=== PATIENT | male | born 1970 ===

== ENCOUNTER 2016-11-20 06:55 | Inpatient (IN) | payer MEDICAID, MEDICARE, OTHER ==
[2016-11-20 07:16] VITALS: BMI 27.4
[2016-11-20] MEDS ORDERED: Sodium Chloride 0.9% 1,000 ML IV ONE (07:34)
[2016-11-20] MEDS ORDERED: Sodium Chloride 0.9% 1,000 ML ONE ×2 (07:44→11:31)
--- NOTE | 2016-11-20 07:52 | C.PDOC ---
History Of Present Illness Patient is a 46 y/o male, whose PMHx includes HTN, and diabetes, that presents to the ED for evaluation of abdominal pain, vomiting, and diarrhea for the last 3 days. Patient also states that he developed left sided chest pain yesterday and some cough. Pt denies any cardiac history but has AICD/Pacemaker scar to chest wall. Otherwise, denies any shortness of breath, extremity swelling. PMD: Dr. Allen Time Seen by Provider: 11/20/16 07:27 Chief Complaint (Nursing): Chest Pain History Per: Patient History/Exam Limitations: no limitations Onset/Duration Of Symptoms: Days (3) Current Symptoms Are (Timing): Still Present Quality: "Pain" Associated Symptoms: Nausea. denies: Dyspnea, Diaphoresis, Syncope Modifying Factors: None Exacerbating Factors: None Alleviating Factors: None Recent travel outside of the [place]: No Additional History Per: Patient Past Medical History Reviewed: Historical Data, Nursing Documentation, Vital Signs Vital Signs: Last Vital Signs Temp 98.4 F 11/20/16 11:45 Pulse 127 H 11/20/16 12:01 Resp 20 11/20/16 12:01 BP 122/83 11/20/16 12:01 Pulse Ox 96 11/20/16 12:35 - Medical History PMH: Cardia Arrhythmia, HTN, Hypercholesterolemia Denies: Chronic Kidney Disease Surgical History: Pacemaker - [facility] Procedures CORONAR ARTERIOGR-2 CATH (11/24/13) DRAINAGE OF ABDOMEN SKIN, EXTERNAL APPROACH (11/26/15) DRAINAGE OF PELVIC SUBCU/FASCIA, PERC APPROACH (10/24/15) LT HEART ANGIOCARDIOGRAM (11/24/13) RT/LEFT HEART CARD CATH (11/24/13) Family History: States: Unknown Family Hx - Social History Hx Tobacco Use: No Hx Alcohol Use: Yes Hx Substance Use: No - Immunization History Hx Tetanus Toxoid Vaccination: No Hx Influenza Vaccination: Yes Hx Pneumococcal Vaccination: No Review Of Systems Except As Marked, All Systems Reviewed And Found Negative. Constitutional: Negative for: Fever, Chills Cardiovascular: Positive for: Chest Pain. Negative for: Palpitations, Edema, Light Headedness Respiratory: Negative for: Cough, Shortness of Breath, Hemoptysis, Sputum Gastrointestinal: Positive for: Nausea, Vomiting, Abdominal Pain, Diarrhea Genitourinary: Negative for: Dysuria, Frequency, Incontinence, Hematuria Musculoskeletal: Negative for: Back Pain Skin: Negative for: Rash Neurological: Negative for: Weakness, Numbness, Headache, Dizziness Physical Exam - Physical Exam Appears: Well, Non-toxic, No Acute Distress Skin: Normal Color, Warm, Dry Head: Atraumatic, Normacephalic Eye(s): bilateral: Normal Inspection, EOMI Neck: Normal ROM, Supple Chest: Symmetrical, No Tenderness Cardiovascular: Rhythm Regular (tachycardic), No Murmur Respiratory: Normal Breath Sounds, No Accessory Muscle Use, No Rales, No Rhonchi , No Wheezing Gastrointestinal/Abdominal: Soft, Tenderness (LLQ), No Guarding, No Rebound Extremity: Normal ROM Neurological/Psych: Oriented x3, Normal Speech, Normal Cognition ED Course And Treatment - Laboratory Results Result Diagrams: 11/20/16 08:06 11/20/16 08:06 ECG: Interpreted By Me, Viewed By Me ECG Rhythm: Sinus Tachycardia ECG Interpretation: No Acute Changes Interpretation Of ECG: Non-specific ST wave changes. Rate From EC (bpm) O2 Sat by Pulse Oximetry: 96 (on RA) Pulse Ox Interpretation: Normal Medical Decision Making Medical Decision Making: Patient is febrile, and tachycardic upon arrival to ED. Blood work, urinalysis, CXR ordered and reviewed. Patient was given Tylenol, Zofran, Morphine, and IV fluids. 9:07AM Cxray shows R sided infiltrate. Patient febrile and tachycardic with elevated bands. Broad spectrum antibitoics started pending CT 9:18AM Code sepsis called. Patient has lactate 3 (resulted after 9am). Febrile and tachycardic on arrival with bandemia. Vanc/zosyn ordered when xray was read. 1L IVF already given. Additional 2.2L (30ml/kg minus 1L bolus already given) ordered when lactate resulted. 11:34AM CT abd/pelvis negative. Lactate improved to 1.7. K replaced. Spoke to Dr. Allen. Will admit to med/sx for pna. EKg shows sinus tachycardia at 141bpm with normal intervals and non-specific ST changes Disposition - Disposition Disposition: HOSPITALIZED Disposition Time: 14:04 Condition: FAIR - Clinical Impression Clinical Impression: Chest pain, Pneumonia - Scribe Statement The provider has reviewed the documentation as recorded by the Gayathri Alba All medical record entries made by the Scribe were at my direction and personally dictated by me. I have reviewed the chart and agree that the record accurately reflects my personal performance of the history, physical exam, medical decision making, and the department course for this patient. I have also personally directed, reviewed, and agree with the discharge instructions and disposition.
[2016-11-20] MEDS ORDERED: Morphine 4 MG/ML VIAL ONE (08:03)
[2016-11-20 08:16] LABS: BASO % 0.4 % (0.0-2.0); HEMOGLOBIN 17.1 g/dL (12.0-18.0); LYMPH # 0.4 K/uL (1.0-4.3); LYMPH % 5.7 % (20.0-40.0); MEAN CELL VOLUME 86.8 fL (80.0-94.0); MEAN CORPUSCULAR HEMOGLOBIN 29.7 pg (27.0-31.0); MEAN CORPUSCULAR HGB CONC 34.2 g/dL (33.0-37.0); MEAN PLATELET VOLUME 11.7 fL (7.2-11.7); MONO # 0.6 K/uL (0.0-0.8); MONO % 8.6 % (0.0-10.0); NEUT # 5.7 K/uL (1.8-7.0); NEUT % 85.3 % (50.0-75.0); RBC 5.74 Mil/uL (4.40-5.90); RED CELL DISTRIBUTION WIDTH 13.4 % (11.5-14.5); WHITE BLOOD COUNT 6.7 K/uL (4.8-10.8)
[2016-11-20 08:18] LABS: INR 1.1; PROTHROMBIN TIME 12.5 SECONDS (9.7-12.2)
[2016-11-20 08:20] LABS: ALBUMIN 4.3 g/dL (3.5-5.0)
[2016-11-20 08:23] LABS: ALB/GLOB RATIO 1.3 (1.0-2.1); ALT/SGPT 30 U/L (21-72); AST/SGOT 28 U/L (17-59); BLOOD UREA NITROGEN 15 mg/dL (9-20); GFR AFRICAN-AMERICAN > 60; GFR NON-AFRICAN AMERICAN > 60
[2016-11-20 08:24] LABS: CALCIUM 8.8 mg/dl (8.6-10.4)
[2016-11-20 08:25] LABS: LIPASE < 10 U/L (23-300); PLATELET COUNT 127 K/uL (130-400)
[2016-11-20 08:26] LABS: URINE BILIRUBIN NEGATIVE (NEGATIVE); URINE BLOOD NEGATIVE (NEGATIVE); URINE CLARITY Clear (Clear); URINE COLOR Yellow (YELLOW); URINE GLUCOSE (UA) 3+ mg/dL (Normal); URINE LEUKOCYTE ESTERASE NEG Leu/uL (Negative); URINE NITRATE NEGATIVE (NEGATIVE); URINE PROTEIN 1+ mg/dL (NEGATIVE); URINE UROBILINOGEN NORMAL mg/dL (0.2-1.0)
[2016-11-20 08:49] LABS: CK-MB 1.08 ng/mL (0.0-3.38)
--- NOTE | 2016-11-20 08:56 | RAD ---
HISTORY: chest pain COMPARISON: 12/17/2013 FINDINGS: LUNGS: Prominent increased consolidative markings at both lung bases ; right greater than left suggestive for infiltrate and or atelectasis. Associated small bilateral pleural effusions. PLEURA: As above. CARDIOVASCULAR: Cardiomegaly. Left-sided pacemaker. OSSEOUS STRUCTURES: No significant abnormalities. VISUALIZED UPPER ABDOMEN: Normal. OTHER FINDINGS: None. IMPRESSION: Prominent increased consolidative markings at both lung bases ; right greater than left suggestive for infiltrate and or atelectasis. Associated small bilateral pleural effusions.
[2016-11-20 09:01] LABS: BANDS 43 % (0-2); LYMPHOCYTE 11 % (20-40); MONOCYTE 6 % (0-10); NEUTROPHIL 40 % (50-75); TOTAL CELLS COUNTED 100
[2016-11-20 09:02] LABS: PLATELET ESTIMATE NORMAL (NORMAL)
[2016-11-20] MEDS ORDERED: Piperacillin/Tazobact 3.375 gm 100 ML IVPB STA (09:05)
[2016-11-20] MEDS ORDERED: Piperacillin/Tazobact 3.375 gm 100 ML IVPB ONE (09:09)
[2016-11-20 09:11] LABS: VENOUS BLOOD GAS BASE EXCESS -4.4 mmol/L (0.0-2.0); VENOUS BLOOD GAS PCO2 39 mmHg (40-60); VENOUS BLOOD GAS PO2 24 mm/Hg (30-55); VENOUS BLOOD PH 7.34 (7.32-7.43)
[2016-11-20] MEDS ORDERED: Iodixanol 320 MG/ML 100 ML BOTTLE IV ONE (09:50)
[2016-11-20 11:14] LABS: VENOUS BLOOD GAS PCO2 36 mmHg (40-60); VENOUS BLOOD GAS PO2 37 mm/Hg (30-55)
--- NOTE | 2016-11-20 11:23 | CT ---
PROCEDURE: CT Abdomen and Pelvis with contrast HISTORY: Left lower quadrant pain and vomiting. COMPARISON: None. TECHNIQUE: Contrast dose: 100 cc Visipaque 320 Radiation dose: Total exam DLP = 1147.00 mGy-cm. This CT exam was performed using one or more of the following dose reduction techniques: Automated exposure control, adjustment of the mA and/or kV according to patient size, and/or use of iterative reconstruction technique. FINDINGS: LOWER THORAX: Unremarkable. LIVER: Hepatic steatosis. No focal masses. No intrahepatic bile duct dilatation or perihepatic ascites. GALLBLADDER AND BILE DUCTS: Unremarkable. PANCREAS: Unremarkable. No gross lesion or ductal dilatation. SPLEEN: Unremarkable. ADRENALS: Unremarkable. No mass. KIDNEYS AND URETERS: Unremarkable. No hydronephrosis. No solid mass. VASCULATURE: Unremarkable. No aortic aneurysm. BOWEL: Diverticulosis without an acute inflammatory component or other associated pathologic process. APPENDIX: Normal appendix. PERITONEUM: Unremarkable. No free fluid. No free air. LYMPH NODES: Unremarkable. No enlarged lymph nodes. BLADDER: Unremarkable. REPRODUCTIVE: Unremarkable. BONES: No acute fracture. OTHER FINDINGS: None. IMPRESSION: No acute findings related to/accounting for the clinical presentation. Additional benign and/or incidental findings described above.
[2016-11-20] MEDS ORDERED: Sodium Chloride 0.9% 500 ML IV ONE (11:31)
[2016-11-20] MEDS ORDERED: Vancomycin 1 GM 1 GM/250 ML BAG IVPB ONE (11:31)
[2016-11-20] MEDS ORDERED: Potassium Chloride 20 mEq ER Tab PO STA (11:33)
[2016-11-20] MEDS ORDERED: Potassium Chloride 20 mEq ER Tab PO ONE (12:07)
[2016-11-20] MEDS: (Novolin R) Insulin Human Regular 100 units/ml vial SC SCH ×2 (16:35→22:08)
[2016-11-20] MEDS ORDERED: (Novolin R) Insulin Human Regular 100 units/ml vial ONE (16:42)
[2016-11-20] MEDS: Metoprolol Succinate 50 mg XL Tab PO SCH (19:57)
--- NOTE | 2016-11-20 20:23 | CP.PCM.HP ---
History of Present Illness - History of Present Illness History of Present Illness: COMPREHENSIVE HISTORY & PHYSICAL EXAM HPI for last few days patient has been complaining of epigastric alfonzo nauseous feeling and vomiting for the last 2 or 3 days patient has no chills, fevers, cough or expectoration. Patient presented to [facility] ER. Chest x-ray was done which showed bilateral infiltrate right more than left. Patient is admitted for aspiration pneumonia PAST HIST. history of hyptension and known ischemic cardiomyopathy and diabetes. [facility] for right groin abscess which is resolved. PERSONAL HIST: Smoking. N Alcohol. N Allergy N Travel_- . FAMILY HIST : ROS : Constitutional: Negative for weight change, chills, night sweats, fatigue and usage of assist device. Eyes: Negative for redness, swelling, itching, discharge, vision changes, blurry vision, double vision, glaucoma, cataracts, Ears: Negative for hearing loss, ringing, , tinnitus, vertigo Nose: Negative for rhinorrhea, stuffiness, sniffing, itching, postnasal drip, discoloration, nasal congestion and epistaxis. Throat: Negative for throat clearing, sore throat, hoarseness, difficulty swallowing and difficulty speaking. Respiratory: Negative for cough, chest tightness, sputum or phlegm, chronic cough, hemoptysis, wheezing, snoring at night, pleuritic chest pain and daytime somnolence. Cardiovascular: Negative for chest pain, palpitations, orthopnea, PND, Edema of legs, leg cramps, angina, claudication, , irregular heartbeat, Neurology: Negative for irritability, muscle weakness, numbness and tingling, seizures, tremors, migraines, slurred speech, syncope, memory loss, mood changes , recurrent headaches Gastrointestinal: Negative for difficulty swallowing, diarrhea, constipation, black stools, rectal bleeding, nausea, flatulence, reflux, poor appetite, changes in bowel habits, abdominal pain Genitourinary: Negative for frequent urination, hematuria, discharge, incontinence, urinary retention, frequent UTI, Psychiatric: Negative for depression, anxiety/panic, suicidal tendencies, Musculoskeletal: Negative for swollen joints, back pain, , neck pain, morning stiffness of joints, . Skin: Negative for rash, ulcers, itching, dry skin and pigmented lesions. P/E: Constitutional: Appears stated age and in no apparent distress. Head: Normocephalic. Ears: External ear canals patent without inflammation. Tympanic membranes intact with normal light reflex and landmark. Eyes: Pupils are central, bilaterally equal, symmetrical and reacts to light with normal movements and no icterus or pallor. Nose: External nares are patent. Mucosa is pink Mouth-Throat: Good general appearance and condition. No post-pharyngeal/oropharyngeal erythema and tonsillar hypertrophy. Good dental hygiene. Neck-Lymphatic: Neck is supple with normal ROM, no thyromegaly, lymph nodes or masses. JVD is normal with no carotid bruit. Lungs: Clear to percussion and auscultation with bilateral normal air entry. Cardiovascular: S1 and S2 are normal with no murmurs, gallops and rub. GI Exam: No hepatomegaly. Abdomen is soft and non-tender. No Organomegaly , masses or hernias are evident and bowel sounds are normal and active. Neurology: Higher function and all cranial nerves intact, with no gross motor or sensory deficit. Superficial and deep reflexes are normal with downwards planters. No cerebellar deficit with normal gait. Musculoskeletal: No tender spots with normal curvature of the spine with no swelling or restricted ROM of the small and large joints. Extremities: Homans sign absent. Intact pulses with no pitting edema, calf tenderness or skin color changes. Skin: No rash, eruptions or abnormal skin pigmentation LAB/RADIOLOGY: ASSESMENT : aspiration pneumonia. ID evaluation IV antibiotics. Hypertension and hypertensive heart disease, stable. Type 2 diabetes, stable Present on Admission - Present on Admission Any Indicators Present on Admission: No Past Patient History - Infectious Disease Hx of Infectious Diseases: None - Past Medical History & Family History Past Medical History?: Yes - Past Social History Smoking Status: Never Smoked - CARDIAC Hx Cardia Arrhythmia: Yes Hx Hypercholesterolemia: Yes Hx Hypertension: Yes Hx Pacemaker: Yes - PULMONARY Hx Respiratory Disorders: No - NEUROLOGICAL Hx Neurological Disorder: No - HEENT Hx HEENT Problems: No - RENAL Hx Chronic Kidney Disease: No - ENDOCRINE/METABOLIC Hx Endocrine Disorders: Yes Hx Diabetes Mellitus Type 2: Yes - HEMATOLOGICAL/ONCOLOGICAL Hx Blood Disorders: No - INTEGUMENTARY Hx Dermatological Problems: Yes Hx Cellulitis: Yes (right groin) - MUSCULOSKELETAL/RHEUMATOLOGICAL Hx Falls: No - GASTROINTESTINAL Hx Gastrointestinal Disorders: No - GENITOURINARY/GYNECOLOGICAL Hx Genitourinary Disorders: No - PSYCHIATRIC Hx Substance Use: No - SURGICAL HISTORY Hx Surgeries: Yes Other/Comment: pacemaker insertion 2 years ago - ANESTHESIA Hx Anesthesia: Yes Hx Anesthesia Reactions: No Hx Malignant Hyperthermia: No Has any member of the family had a problem w/ anesthesia?: No Meds Allergies/Adverse Reactions: Allergies Allergy/AdvReac Type Severity Reaction Status Date / Time No Known Allergies Allergy Verified 11/20/16 07:10 Results - Vital Signs Recent Vital Signs: Last Vital Signs Temp 99.3 F 11/20/16 18:27 Pulse 108 H 11/20/16 18:27 Resp 20 11/20/16 18:27 BP 133/88 11/20/16 18:27 Pulse Ox 97 11/20/16 18:27 - Labs Result Diagrams: 11/20/16 08:06 11/20/16 08:06 Labs: Laboratory Results - last 24 hr 11/20/16 16:34 POC Glucose (mg/dL) 299 H
--- NOTE | 2016-11-20 20:49 | CP.PCM.CON ---
History of Present Illness - History of Present Illness History of Present Illness: INFECTIOUS DISEASE CONSULT; HPI 46-year-old male with history off hypertension, ischemic cardiomyopathy, diabetes mellitus with recent history of right groin abscess which has resolved now comes in to the ER with history of abdominal pains mainly epigastric with nausea and vomiting and diarrhea with watery stools for the last 3 days. She states he is having 7-10 loose BMs and feels very dehydrated and weak. Patient also states he developed left-sided chest pain since yesterday and some cough. Denies any expectoration or hemoptysis. chest x-ray on admission showed bilateral infiltrates and prominent consolidations both lungs right sided more than the left. Also seen was left- sided pacemaker in place. Patient also underwent for CT of the abdomen and pelvis with IV contrast which showed no acute obstruction except for hepatic steatosis. Patient was started on IV Zosyn 3.375 one dose and vancomycin 1 g one dose after appropriate cultures. Infectious disease consultation requested by PMD for further evaluation. patient denies any sick contacts but states had dinner with meat products at his friend's home on Sunday. PMH: Cardia Arrhythmia, HTN, Hypercholesterolemia Denies: Chronic Kidney Disease Surgical History: Pacemaker - [facility] Procedures CORONAR ARTERIOGR-2 CATH (11/24/13) DRAINAGE OF ABDOMEN SKIN, EXTERNAL APPROACH (11/26/15) DRAINAGE OF PELVIC SUBCU/FASCIA, PERC APPROACH (10/24/15) LT HEART ANGIOCARDIOGRAM (11/24/13) RT/LEFT HEART CARD CATH (11/24/13) Family History: States: Unknown Family Hx - Social History Hx Tobacco Use: No Hx Alcohol Use: Yes Hx Substance Use: No - Immunization History Hx Tetanus Toxoid Vaccination: No Hx Influenza Vaccination: Yes Hx Pneumococcal Vaccination: No Review of Systems - Constitutional Constitutional: Lethargy. absent: Chills, Fever - EENT Eyes: absent: Blurred Vision, Floaters Nose/Mouth/Throat: Dry Mouth. absent: Odynophagia, Sore Throat - Cardiovascular Cardiovascular: Chest Pain, Dyspnea on Exertion. absent: Palpitations - Respiratory Respiratory: Cough. absent: Hemoptysis - Gastrointestinal Gastrointestinal: Abdominal Pain, Cramping, Diarrhea (7-10 bm /day), Nausea, Vomiting - Genitourinary Genitourinary: absent: Dysuria, Flank Pain - Musculoskeletal Musculoskeletal: absent: Arthralgias - Integumentary Integumentary: absent: Rash - Neurological Neurological: absent: Headaches - Hematologic/Lymphatic Hematologic: As Per HPI. absent: Lymphadenopathy Past Patient History - Infectious Disease Hx of Infectious Diseases: None - Past Medical History & Family History Past Medical History?: Yes - Past Social History Smoking Status: Never Smoked - CARDIAC Hx Cardia Arrhythmia: Yes Hx Hypercholesterolemia: Yes Hx Hypertension: Yes Hx Pacemaker: Yes - PULMONARY Hx Respiratory Disorders: No - NEUROLOGICAL Hx Neurological Disorder: No - HEENT Hx HEENT Problems: No - RENAL Hx Chronic Kidney Disease: No - ENDOCRINE/METABOLIC Hx Endocrine Disorders: Yes Hx Diabetes Mellitus Type 2: Yes - HEMATOLOGICAL/ONCOLOGICAL Hx Blood Disorders: No - INTEGUMENTARY Hx Dermatological Problems: Yes Hx Cellulitis: Yes (right groin) - MUSCULOSKELETAL/RHEUMATOLOGICAL Hx Falls: No - GASTROINTESTINAL Hx Gastrointestinal Disorders: No - GENITOURINARY/GYNECOLOGICAL Hx Genitourinary Disorders: No - PSYCHIATRIC Hx Substance Use: No - SURGICAL HISTORY Hx Surgeries: Yes Other/Comment: pacemaker insertion 2 years ago - ANESTHESIA Hx Anesthesia: Yes Hx Anesthesia Reactions: No Hx Malignant Hyperthermia: No Has any member of the family had a problem w/ anesthesia?: No Meds Allergies/Adverse Reactions: Allergies Allergy/AdvReac Type Severity Reaction Status Date / Time No Known Allergies Allergy Verified 11/20/16 07:10 - Medications Medications: Current Medications Carvedilol (Coreg) 6.25 mg PO BID [facility] Last Admin: 11/20/16 19:57 Dose: 6.25 mg Clonidine HCl (Catapres) 0.2 mg PO TID [facility] Last Admin: 11/20/16 15:13 Dose: 0.2 mg Enalapril Maleate (Vasotec) 20 mg PO BID [facility] Furosemide (Lasix) 40 mg PO DAILY [facility] Gabapentin (Neurontin) 300 mg PO TID [facility] Last Admin: 11/20/16 19:58 Dose: 300 mg Insulin Human Regular (Novolin R) 2 unit SC [facility] PRN Reason: Protocol Last Admin: 11/20/16 16:35 Dose: 2 unit Metformin HCl (Glucophage) 500 mg PO BIDCC [facility] Metoprolol Succinate (Toprol Xl) 50 mg PO BID [facility] Last Admin: 11/20/16 19:57 Dose: 50 mg Rosuvastatin Calcium (Crestor) 10 mg PO [facility] Physical Exam - Constitutional Appears: No Acute Distress - Head Exam Head Exam: NORMAL INSPECTION - Eye Exam Eye Exam: EOMI, PERRL. absent: Scleral icterus - ENT Exam ENT Exam: Mucous Membranes Dry, Normal Oropharynx - Neck Exam Neck exam: Positive for: Normal Inspection - Respiratory Exam Respiratory Exam: Decreased Breath Sounds (bases), NORMAL BREATHING PATTERN - Cardiovascular Exam Cardiovascular Exam: REGULAR RHYTHM, +S1, +S2 - GI/Abdominal Exam GI & Abdominal Exam: Normal Bowel Sounds, Soft, Tenderness (epigastric.) - Extremities Exam Extremities exam: Positive for: pedal pulses present. Negative for: calf tenderness, pedal edema - Neurological Exam Neurological exam: Alert, CN II-XII Intact, Oriented x3, Reflexes Normal - Psychiatric Exam Psychiatric exam: Normal Mood - Skin Skin Exam: Normal Color, Warm Results - Vital Signs Recent Vital Signs: Last Vital Signs Temp 99.3 F 11/20/16 18:27 Pulse 108 H 11/20/16 18:27 Resp 20 11/20/16 18:27 BP 133/88 11/20/16 18:27 Pulse Ox 97 11/20/16 18:27 - Labs Result Diagrams: 11/20/16 08:06 11/20/16 08:06 Labs: Laboratory Results - last 24 hr 11/20/16 16:34 POC Glucose (mg/dL) 299 H - Imaging and Cardiology Chest x-ray Status: Report reviewed by me (prominent consolidative markings both lungs R>L , infiltrate versus atelectasis. Left-sided pacemaker.) Assessment & Plan (1) Pneumonia Assessment and Plan: PATIENT HAS PNEUMONIA MOST LIKELY ASPIRATION. cANNOT RULE OUT ATYPICAL PNEUMONIA. CHECK URINARY LEGIONELLA ANTIGEN. PATIENT DENIES ANY EXPECTORATION, OR HEMOPTYSIS. hAS MILD DRY COUGH. ESR,CRP. MRSA SCREEN. PRO-CALCITONIN LEVELS. sTART iv CEFEPIME 1 G EVERY 8 HOURLY. 11/20/16. sTART iv zITHROMAX 250 MG EVERY 24 HOURLY X 5DAYS.11/20/16 Status: Acute (2) Gastroenteritis Assessment and Plan: DIARRHEA WORKUP ORDERED. IMODIUM 2 MG BY MOUTH TABLET NOW FOLLOWED BY 1 TABLET BY MOUTH WHEN NECESSARY EVERY 8 HOURLY FOR 2 DAYS. Status: Acute (3) Chest pain Assessment and Plan: PER pmd. Status: Acute (4) HTN (hypertension) Status: Chronic (5) Diabetes Status: Chronic (6) Cardiomyopathy Assessment and Plan: PATIENT HAS AN AICD /PERMANENT PACEMAKER LEFT CHEST WALL. PRO BNP Status: Acute
[2016-11-20] MEDS: Cefepime IV 1 gm in Dextrose 1 GM/50 ML BAG IVPB SCH (22:19)
[2016-11-20] MEDS: Azithromycin 250 MG in Sodium Chloride 0.9% 250 ML IVPB SCH (22:20)
[2016-11-21] MEDS: Cefepime IV 1 gm in Dextrose 1 GM/50 ML BAG IVPB SCH ×3 (04:54→22:21)
[2016-11-21 07:51] LABS: ALBUMIN 3.3 g/dL (3.5-5.0)
[2016-11-21 07:54] LABS: ALB/GLOB RATIO 1.1 (1.0-2.1); BILIRUBIN,DIRECT 0.3 mg/dL (0.0-0.4)
[2016-11-21] MEDS: (Novolin R) Insulin Human Regular 100 units/ml vial SC SCH ×5 (08:55→22:22)
[2016-11-21] MEDS: Metoprolol Succinate 50 mg XL Tab PO SCH ×2 (10:46→22:24)
--- NOTE | 2016-11-21 13:20 | CP.PCM.PN ---
Subjective - Date & Time of Evaluation Date of Evaluation: 11/21/16 Time of Evaluation: 13:17 - Subjective Subjective: CHIEF COMPLAINTS TODAY : PROFUSE WATERY DIARRHEA SPIKED TEMP 101 .1F ID ON BOARD ROS. HEENT : N. Resp : No cough, wheezing ,pleuritic CP ,or hemoptysis Cardio : No anginal CP, PND, orthopnea, palpitation GI : POS abd.pain, n/v ,diarrhea NO GI bleeding . REDYE HAND : No headache, vertigo, focal deficit. Musculoskel : No joint swelling , Derm : No rash Psych : Normal affect. Ext : No swelling ,calf pain PE. Pt. is alert awake in no distress. V.S As noted in the chart Head ,ear nose,throat and eyes : Normal. Neck : Supple with normal carotids. Lungs: Clear air entry. Heart : S1 & S2 normal with S4. No murmur. Abd : Soft tender with normal bowel sounds. Neuro : Moves all ext. with no localized deficit. Ext : No edema with intact pulses.Non tender calves Derm : No rashes or decubitus ulcer. LABS/RADIOLOGY: ASSESSMENT/PLAN : SEPSIS , ASPIRATION PNEUMONIA , INFECTIOUS DIARRHEA , COLITIS CARDIOMYOPATHY/HTN/DM/NORMAL CORONARIES Objective - Vital Signs/Intake and Output Vital Signs (last 24 hours): Temp Pulse Resp BP Pulse Ox 98.8 F 105 H 18 126/81 95 11/21/16 07:25 11/21/16 07:25 11/21/16 07:25 11/21/16 10:46 11/21/16 07:25 - Medications Medications: Current Medications Carvedilol (Coreg) 6.25 mg PO BID [facility] Last Admin: 11/21/16 10:46 Dose: 6.25 mg Clonidine HCl (Catapres) 0.2 mg PO TID [facility] Last Admin: 11/21/16 13:00 Dose: 0.2 mg Enalapril Maleate (Vasotec) 20 mg PO BID [facility] Last Admin: 11/21/16 10:45 Dose: 20 mg Furosemide (Lasix) 40 mg PO DAILY [facility] Last Admin: 11/21/16 10:46 Dose: 40 mg Gabapentin (Neurontin) 300 mg PO TID [facility] Last Admin: 11/21/16 13:00 Dose: 300 mg Cefepime HCl (Maxipime Iv 1 Gm Premix) 1 gm in 50 mls @ 100 mls/hr IVPB Q8H [facility] Last Admin: 11/21/16 12:57 Dose: 100 mls/hr Azithromycin 250 mg/ Sodium (Chloride) 250 mls @ 250 mls/hr IVPB Q24H [facility] Stop: 11/24/16 21:59 Last Admin: 11/20/16 22:20 Dose: 250 mls/hr Insulin Human Regular (Novolin R) 0 unit SC [facility] PRN Reason: Protocol Last Admin: 11/21/16 12:30 Dose: 4 unit Loperamide HCl (Imodium) 2 mg PO Q8H PRN PRN Reason: Diarrhea Stop: 11/23/16 20:00 Last Admin: 11/21/16 08:55 Dose: 2 mg Metformin HCl (Glucophage) 500 mg PO BIDCC [facility] Metoprolol Succinate (Toprol Xl) 50 mg PO BID [facility] Last Admin: 11/21/16 10:46 Dose: 50 mg Rosuvastatin Calcium (Crestor) 10 mg PO HS [facility] Last Admin: 11/20/16 22:25 Dose: 10 mg Tramadol HCl (Ultram) 50 mg PO Q8H PRN PRN Reason: Pain Last Admin: 11/20/16 23:06 Dose: 50 mg - Labs Labs: PT 12.5 SECONDS (9.7-12.2) H 11/20/16 08:06 INR 1.1 11/20/16 08:06 APTT 35 SECONDS (21-34) H 11/20/16 08:06
[2016-11-21] MEDS ORDERED: Lactobacillus Acidophilus 500 MU Cap PO SCH (18:56)
[2016-11-21] MEDS: Azithromycin 250 MG in Sodium Chloride 0.9% 250 ML IVPB SCH (22:25)
[2016-11-21] MEDS ORDERED: Amikacin Sulfate 1,000 MG in Sodium Chloride 0.9% 250 ML IVPB SCH (23:00)
[2016-11-21] MEDS ORDERED: Amikacin Sulfate 1,000 MG in Sodium Chloride 0.9% 250 ML IVPB STA (23:05)
--- NOTE | 2016-11-21 23:11 | CP.PCM.PN ---
Subjective - Date & Time of Evaluation Date of Evaluation: 11/21/16 Time of Evaluation: 23:10 - Subjective Subjective: CHIEF COMPLAINTS TODAY : spiked a temperature to 101.1 c/o watery bowel movements about 10 or more feels weak AT BEDSIDE. ROS. HEENT : N. Resp : No cough, wheezing ,pleuritic CP ,or hemoptysis Cardio : No anginal CP, PND, orthopnea, palpitation GI : POS abd.pain, n/v ,diarrhea NO GI bleeding . 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 Musculoskel : No joint swelling , Derm : No rash Psych : Normal affect. Ext : No swelling ,calf pain PE. Pt. is alert awake in no distress. V.S As noted in the chart Head ,ear nose,throat and eyes : Normal. Neck : Supple with normal carotids. Lungs: Clear air entry. Heart : S1 & S2 normal with S4. No murmur. Abd : Soft TENDER EPIGASTRIC, with normal bowel sounds. Neuro : Moves all ext. with no localized deficit. Ext : No edema with intact pulses.Non tender calves Derm : No rashes or decubitus ulcer. LABS/RADIOLOGY: blood [id number] RODS. K2.5 BANDEMIA 13%. ASSESSMENT SEPSIS ASPIRATION PNEUMONIA , INFECTIOUS DIARRHEA CARDIOMYOPATHY/ HTN/ DM CAD/AICD PLAN : IV AMIKACIN 1000MG X 1 DOSE.11/21/16 CONTINUE iv CEFEPIME 1 G EVERY 8 HOURLY. 11/20/16 ZITHROMAX 250 MG OD DAILY.11/20/16 POTASSIUM SUPPLEMENT PER PMD FOLLOW-UP DIARRHEA WORKUP. ENTERIC PRECAUTIONS. Objective - Vital Signs/Intake and Output Vital Signs (last 24 hours): Temp Pulse Resp BP Pulse Ox 97.3 F L 91 H 20 119/73 96 11/21/16 15:18 11/21/16 15:18 11/21/16 15:18 11/21/16 15:18 11/21/16 15:18 Intake and Output: 11/21/16 11/22/16 18:59 06:59 Intake Total 500 Balance 500 - Medications Medications: Current Medications Carvedilol (Coreg) 6.25 mg PO BID [facility] Last Admin: 11/21/16 18:00 Dose: Not Given Clonidine HCl (Catapres) 0.2 mg PO TID [facility] Last Admin: 11/21/16 18:00 Dose: Not Given Enalapril Maleate (Vasotec) 20 mg PO BID [facility] Last Admin: 11/21/16 18:00 Dose: Not Given Furosemide (Lasix) 40 mg PO DAILY [facility] Last Admin: 11/21/16 10:46 Dose: 40 mg Gabapentin (Neurontin) 300 mg PO TID [facility] Last Admin: 11/21/16 18:43 Dose: 300 mg Cefepime HCl (Maxipime Iv 1 Gm Premix) 1 gm in 50 mls @ 100 mls/hr IVPB Q8H [facility] Last Admin: 11/21/16 22:21 Dose: 100 mls/hr Azithromycin 250 mg/ Sodium (Chloride) 250 mls @ 250 mls/hr IVPB Q24H [facility] Stop: 11/24/16 21:59 Last Admin: 11/21/16 22:25 Dose: 250 mls/hr Amikacin Sulfate 1,000 mg/ (Sodium Chloride) 254 mls @ 250 mls/hr IVPB ONCE STA Stop: 11/22/16 00:05 Insulin Human Regular (Novolin R) 0 unit SC ACHS [facility] PRN Reason: Protocol Last Admin: 11/21/16 22:22 Dose: Not Given Lactobacillus Acidophilus (Bacid Acidophilus) 1 cap PO HS [facility] Last Admin: 11/21/16 22:19 Dose: 1 cap Loperamide HCl (Imodium) 2 mg PO Q8H PRN PRN Reason: Diarrhea Stop: 11/23/16 20:00 Last Admin: 11/21/16 20:12 Dose: 2 mg [facility] Metoprolol Succinate (Toprol Xl) 50 mg PO BID [facility] Last Admin: 11/21/16 22:24 Dose: 50 mg Rosuvastatin Calcium (Crestor) 10 mg PO HS [facility] Last Admin: 11/21/16 22:20 Dose: 10 mg Tramadol HCl (Ultram) 50 mg PO Q8H PRN PRN Reason: Pain Last Admin: 11/20/16 23:06 Dose: 50 mg - Labs Labs: PT 12.5 SECONDS (9.7-12.2) H 11/20/16 08:06 INR 1.1 11/20/16 08:06 APTT 35 SECONDS (21-34) H 11/20/16 08:06 Assessment and Plan (1) Pneumonia Status: Acute (2) Gastroenteritis Status: Acute (3) Chest pain Status: Acute (4) HTN (hypertension) Status: Chronic (5) Diabetes Status: Chronic (6) Cardiomyopathy Status: Acute
[2016-11-22] MEDS: Cefepime IV 1 gm in Dextrose 1 GM/50 ML BAG IVPB SCH ×3 (04:31→21:04)
[2016-11-22 07:33] LABS: BASO % 0.3 % (0.0-2.0); EOS % 0.1 % (0.0-4.0); LYMPH # 0.5 K/uL (1.0-4.3); LYMPH % 8.1 % (20.0-40.0); MEAN CORPUSCULAR HEMOGLOBIN 29.6 pg (27.0-31.0); MEAN CORPUSCULAR HGB CONC 34.9 g/dL (33.0-37.0); MEAN PLATELET VOLUME 10.6 fL (7.2-11.7); MONO # 0.9 K/uL (0.0-0.8); MONO % 13.6 % (0.0-10.0); NEUT # 5.2 K/uL (1.8-7.0); NEUT % 77.9 % (50.0-75.0); PLATELET COUNT 118 K/uL (130-400); RBC 4.92 Mil/uL (4.40-5.90); RED CELL DISTRIBUTION WIDTH 13.1 % (11.5-14.5); WHITE BLOOD COUNT 6.6 K/uL (4.8-10.8)
[2016-11-22 07:48] LABS: HEMOGLOBIN 14.5 g/dL (12.0-18.0); MEAN CELL VOLUME 84.7 fL (80.0-94.0)
[2016-11-22 08:12] LABS: ALBUMIN 3.3 g/dL (3.5-5.0)
[2016-11-22 08:15] LABS: ALB/GLOB RATIO 1.1 (1.0-2.1); ALT/SGPT 30 U/L (21-72); AST/SGOT 31 U/L (17-59); BLOOD UREA NITROGEN 13 mg/dL (9-20); GFR AFRICAN-AMERICAN > 60; GFR NON-AFRICAN AMERICAN > 60
[2016-11-22 08:16] LABS: CALCIUM 7.4 mg/dl (8.6-10.4)
--- NOTE | 2016-11-22 08:20 | RAD ---
HISTORY: pneumonia COMPARISON: No prior. FINDINGS: LUNGS: Mild venous congestion. Prominent linear atelectasis at the right lung base. Patchy bibasilar airspace opacities with small bilateral pleural effusions. PLEURA: As above. CARDIOVASCULAR: Cardiomegaly. Left-sided pacemaker. OSSEOUS STRUCTURES: No significant abnormalities. VISUALIZED UPPER ABDOMEN: Normal. OTHER FINDINGS: None. IMPRESSION: Mild venous congestion. Prominent linear atelectasis at the right lung base. Patchy bibasilar airspace opacities with small bilateral pleural effusions.
[2016-11-22] MEDS: (Novolin R) Insulin Human Regular 100 units/ml vial SC SCH ×4 (08:30→21:49)
[2016-11-22] MEDS: Metoprolol Succinate 50 mg XL Tab PO SCH ×2 (09:09→21:09)
[2016-11-22 09:24] LABS: BANDS 13 % (0-2); LYMPHOCYTE 6 % (20-40); MONOCYTE 10 % (0-10); NEUTROPHIL 71 % (50-75); TOTAL CELLS COUNTED 100
[2016-11-22 09:25] LABS: PLATELET ESTIMATE DECREASED (NORMAL)
[2016-11-22] MEDS ORDERED: Potassium Chloride 20 mEq ER Tab PO SCH (10:30)
[2016-11-22] MEDS ORDERED: Potassium Chloride 20 mEq ER Tab PO ONE (10:45)
--- NOTE | 2016-11-22 13:49 | CP.PCM.PN ---
Subjective - Date & Time of Evaluation Date of Evaluation: 11/22/16 Time of Evaluation: 13:46 - Subjective Subjective: CHIEF COMPLAINTS TODAY : DIARRHEA LESS BLD CULTURE POS , GM NEG RODS ROS. HEENT : N. Resp : No cough, wheezing ,pleuritic CP ,or hemoptysis Cardio : No anginal CP, PND, orthopnea, palpitation GI : POS abd.pain, n/v ,diarrhea NO GI bleeding . 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 Musculoskel : No joint swelling , Derm : No rash Psych : Normal affect. Ext : No swelling ,calf pain PE. Pt. is alert awake in no distress. V.S As noted in the chart Head ,ear nose,throat and eyes : Normal. Neck : Supple with normal carotids. Lungs: Clear air entry. Heart : S1 & S2 normal with S4. No murmur. Abd : Soft tender with normal bowel sounds. Neuro : Moves all ext. with no localized deficit. Ext : No edema with intact pulses.Non tender calves Derm : No rashes or decubitus ulcer. LABS/RADIOLOGY: ASSESSMENT/PLAN : IV AB Objective - Vital Signs/Intake and Output Vital Signs (last 24 hours): Temp Pulse Resp BP Pulse Ox 98.7 F 84 20 141/79 96 11/22/16 07:00 11/22/16 07:00 11/22/16 07:00 11/22/16 09:09 11/22/16 07:00 - Medications Medications: Current Medications Carvedilol (Coreg) 6.25 mg PO BID [facility] Last Admin: 11/22/16 09:09 Dose: 6.25 mg Clonidine HCl (Catapres) 0.2 mg PO TID [facility] Last Admin: 11/22/16 13:21 Dose: 0.2 mg Enalapril Maleate (Vasotec) 20 mg PO BID [facility] Last Admin: 11/22/16 09:09 Dose: 20 mg Furosemide (Lasix) 40 mg PO DAILY [facility] Last Admin: 11/22/16 09:09 Dose: 40 mg Gabapentin (Neurontin) 300 mg PO TID [facility] Last Admin: 11/22/16 13:21 Dose: 300 mg Cefepime HCl (Maxipime Iv 1 Gm Premix) 1 gm in 50 mls @ 100 mls/hr IVPB Q8H [facility] Last Admin: 11/22/16 12:19 Dose: 100 mls/hr Azithromycin 250 mg/ Sodium (Chloride) 250 mls @ 250 mls/hr IVPB Q24H [facility] Stop: 11/24/16 21:59 Last Admin: 11/21/16 22:25 Dose: 250 mls/hr Potassium Chloride (Potassium Chloride 10 Meq/100 Ml) 10 meq in 100 mls @ 100 mls/hr IVPB ONCE ONE Stop: 11/22/16 13:59 Last Admin: 11/22/16 12:19 Dose: 100 mls/hr Insulin Human Regular (Novolin R) 0 unit SC ACHS [facility] PRN Reason: Protocol Last Admin: 11/22/16 12:30 Dose: 6 unit Lactobacillus Acidophilus (Bacid Acidophilus) 1 cap PO HS [facility] Last Admin: 11/21/16 22:19 Dose: 1 cap Loperamide HCl (Imodium) 2 mg PO Q8H PRN PRN Reason: Diarrhea Stop: 11/23/16 20:00 Last Admin: 11/22/16 11:04 Dose: 2 mg Metformin HCl (Glucophage) 500 mg PO BIDCC [facility] Metoprolol Succinate (Toprol Xl) 50 mg PO BID [facility] Last Admin: 11/22/16 09:09 Dose: 50 mg Rosuvastatin Calcium (Crestor) 10 mg PO HS [facility] Last Admin: 11/21/16 22:20 Dose: 10 mg Tramadol HCl (Ultram) 50 mg PO Q8H PRN PRN Reason: Pain Last Admin: 11/20/16 23:06 Dose: 50 mg - Labs Labs: 11/22/16 07:03 11/22/16 07:03 PT 12.5 SECONDS (9.7-12.2) H 11/20/16 08:06 INR 1.1 11/20/16 08:06 APTT 35 SECONDS (21-34) H 11/20/16 08:06
[2016-11-22 18:02] LABS: SOURCE STOOL
[2016-11-22] MEDS: Lactobacillus Acidophilus 500 MU Cap PO SCH (18:02)
[2016-11-22 20:34] LABS: ALBUMIN 3.4 g/dL (3.5-5.0)
[2016-11-22 20:37] LABS: AST/SGOT 37 U/L (17-59); BLOOD UREA NITROGEN 13 mg/dL (9-20); CALCIUM 7.6 mg/dl (8.6-10.4); GFR AFRICAN-AMERICAN > 60; GFR NON-AFRICAN AMERICAN > 60
[2016-11-22 20:38] LABS: ALT/SGPT 34 U/L (21-72)
[2016-11-22 20:42] LABS: ALB/GLOB RATIO 1.1 (1.0-2.1)
[2016-11-22] MEDS: Azithromycin 250 MG in Sodium Chloride 0.9% 250 ML IVPB SCH (21:05)
--- NOTE | 2016-11-22 22:59 | CP.PCM.PN ---
Subjective - Date & Time of Evaluation Date of Evaluation: 11/22/16 Time of Evaluation: 22:59 - Subjective Subjective: CHIEF COMPLAINTS TODAY : spiked a temperature to 101.1 c/o STILL watery bowel movements. SOILED THE BED AT BEDSIDE. ROS. HEENT : N. Resp : No cough, wheezing ,pleuritic CP ,or hemoptysis Cardio : No anginal CP, PND, orthopnea, palpitation GI : POS abd.pain, n/v ,diarrhea NO GI bleeding . 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 Musculoskel : No joint swelling , Derm : No rash Psych : Normal affect. Ext : No swelling ,calf pain PE. Pt. is alert awake in no distress. V.S As noted in the chart Head ,ear nose,throat and eyes : Normal. Neck : Supple with normal carotids. Lungs: Clear air entry. Heart : S1 & S2 normal with S4. No murmur. Abd : Soft TENDER EPIGASTRIC, with normal bowel sounds. Neuro : Moves all ext. with no localized deficit. Ext : No edema with intact pulses.Non tender calves Derm : No rashes or decubitus ulcer. LABS/RADIOLOGY: blood [id number] RODS. K2.5 BANDEMIA 13%. ASSESSMENT SEPSIS -GRAM -VE SEPSIS -source not clear ? intra-abdominal abscess r/o endocarditis.. Patient had history of right groin abscess MRSA .( NOW HEALED ) ASPIRATION PNEUMONIA , INFECTIOUS DIARRHEA CARDIOMYOPATHY/ HTN/ DM CAD/AICD PLAN : 2D ECHO R/O VEGETATIONS C2,C4,CH50 RH FACTOR CERETAC SCAN ABDOMEN/PELVIS R/O SPLENIC VS INTRA-ABDOMINAL ABSCESS. IV AMIKACIN 1000MG X 1 DOSE.11/21/16 CONTINUE iv CEFEPIME 1 G EVERY 8 HOURLY. 11/20/16 ZITHROMAX 250 MG OD DAILY.11/20/16 POTASSIUM SUPPLEMENT PER PMD FOLLOW-UP DIARRHEA WORKUP. ENTERIC PRECAUTIONS. Objective - Vital Signs/Intake and Output Vital Signs (last 24 hours): Temp Pulse Resp BP Pulse Ox 98.5 F 77 18 123/81 97 11/22/16 15:52 11/22/16 17:30 11/22/16 15:52 11/22/16 15:52 11/22/16 15:52 Intake and Output: 11/22/16 11/23/16 18:59 06:59 Intake Total 300 Balance 300 - Medications Medications: Current Medications Carvedilol (Coreg) 6.25 mg PO BID [facility] Last Admin: 11/22/16 18:00 Dose: Not Given Clonidine HCl (Catapres) 0.2 mg PO TID [facility] Last Admin: 11/22/16 18:00 Dose: Not Given Enalapril Maleate (Vasotec) 20 mg PO BID [facility] Last Admin: 11/22/16 18:00 Dose: Not Given Furosemide (Lasix) 40 mg PO DAILY [facility] Last Admin: 11/22/16 09:09 Dose: 40 mg Gabapentin (Neurontin) 300 mg PO TID [facility] Last Admin: 11/22/16 18:02 Dose: 300 mg Cefepime HCl (Maxipime Iv 1 Gm Premix) 1 gm in 50 mls @ 100 mls/hr IVPB Q8H [facility] Last Admin: 11/22/16 21:04 Dose: 100 mls/hr Azithromycin 250 mg/ Sodium (Chloride) 250 mls @ 250 mls/hr IVPB Q24H [facility] Stop: 11/24/16 21:59 Last Admin: 11/22/16 21:05 Dose: 250 mls/hr Insulin Human Regular (Novolin R) 0 unit SC ACHS [facility] PRN Reason: Protocol Last Admin: 11/22/16 21:49 Dose: Not Given Lactobacillus Acidophilus (Bacid Acidophilus) 1 cap PO BID [facility] Last Admin: 11/22/16 18:02 Dose: 1 cap Loperamide HCl (Imodium) 2 mg PO Q6H [facility] Last Admin: 11/22/16 22:09 Dose: 2 mg Metformin HCl (Glucophage) 500 mg PO BIDCC [facility] Metoprolol Succinate (Toprol Xl) 50 mg PO BID [facility] Last Admin: 11/22/16 21:09 Dose: 50 mg Rosuvastatin Calcium (Crestor) 10 mg PO HS [facility] Last Admin: 11/22/16 21:09 Dose: 10 mg Tramadol HCl (Ultram) 50 mg PO Q8H PRN PRN Reason: Pain Last Admin: 11/20/16 23:06 Dose: 50 mg - Labs Labs: 11/22/16 07:03 11/22/16 20:16 PT 12.5 SECONDS (9.7-12.2) H 11/20/16 08:06 INR 1.1 11/20/16 08:06 APTT 35 SECONDS (21-34) H 11/20/16 08:06 Assessment and Plan (1) Pneumonia Status: Acute (2) Gastroenteritis Status: Acute (3) Chest pain Status: Acute (4) HTN (hypertension) Status: Chronic (5) Diabetes Status: Chronic (6) Cardiomyopathy Status: Acute
[2016-11-23] MEDS: Cefepime IV 1 gm in Dextrose 1 GM/50 ML BAG IVPB SCH ×3 (05:10→22:08)
[2016-11-23 08:10] LABS: BASO # 0.1 K/uL (0.0-0.2); BASO % 0.9 % (0.0-2.0); EOS % 0.5 % (0.0-4.0); HEMOGLOBIN 14.4 g/dL (12.0-18.0); LYMPH # 0.5 K/uL (1.0-4.3); LYMPH % 8.4 % (20.0-40.0); MEAN CORPUSCULAR HEMOGLOBIN 28.9 pg (27.0-31.0); MEAN PLATELET VOLUME 9.9 fL (7.2-11.7); MONO % 16.3 % (0.0-10.0); NEUT # 4.7 K/uL (1.8-7.0); NEUT % 73.9 % (50.0-75.0); PLATELET COUNT 124 K/uL (130-400); RBC 4.98 Mil/uL (4.40-5.90); RED CELL DISTRIBUTION WIDTH 13.2 % (11.5-14.5); WHITE BLOOD COUNT 6.4 K/uL (4.8-10.8)
[2016-11-23 08:16] LABS: ALBUMIN 3.1 g/dL (3.5-5.0)
[2016-11-23 08:18] LABS: GFR AFRICAN-AMERICAN > 60; GFR NON-AFRICAN AMERICAN > 60
[2016-11-23 08:19] LABS: ALT/SGPT 37 U/L (21-72); AST/SGOT 30 U/L (17-59); BLOOD UREA NITROGEN 12 mg/dL (9-20); CALCIUM 7.6 mg/dl (8.6-10.4)
[2016-11-23] MEDS: (Novolin R) Insulin Human Regular 100 units/ml vial SC SCH ×4 (08:25→22:08)
[2016-11-23 09:01] LABS: BANDS 4 % (0-2); LYMPHOCYTE 11 % (20-40); MONOCYTE 10 % (0-10); NEUTROPHIL 75 % (50-75); TOTAL CELLS COUNTED 100
[2016-11-23 09:02] LABS: PLATELET ESTIMATE SLIGHTLY DECREASED (NORMAL)
[2016-11-23] MEDS: Lactobacillus Acidophilus 500 MU Cap PO SCH ×2 (10:59→18:12)
[2016-11-23] MEDS: Metoprolol Succinate 50 mg XL Tab PO SCH ×2 (10:59→18:12)
--- NOTE | 2016-11-23 13:50 | CP.PCM.PN ---
Subjective - Date & Time of Evaluation Date of Evaluation: 11/23/16 Time of Evaluation: 13:50 - Subjective Subjective: CHIEF COMPLAINTS TODAY : DIARRHEA LESS BLD CULTURE POS , SALMONELLA GRP. C ROS. HEENT : N. Resp : No cough, wheezing ,pleuritic CP ,or hemoptysis Cardio : No anginal CP, PND, orthopnea, palpitation GI : POS abd.pain, n/v ,diarrhea NO GI bleeding . 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 Musculoskel : No joint swelling , Derm : No rash Psych : Normal affect. Ext : No swelling ,calf pain PE. Pt. is alert awake in no distress. V.S As noted in the chart Head ,ear nose,throat and eyes : Normal. Neck : Supple with normal carotids. Lungs: Clear air entry. Heart : S1 & S2 normal with S4. No murmur. Abd : Soft tender with normal bowel sounds. Neuro : Moves all ext. with no localized deficit. Ext : No edema with intact pulses.Non tender calves Derm : No rashes or decubitus ulcer. LABS/RADIOLOGY: K LOW , IV KCL ASSESSMENT/PLAN : IV AB Objective - Vital Signs/Intake and Output Vital Signs (last 24 hours): Temp Pulse Resp BP Pulse Ox 97.8 F 85 20 144/97 H 97 11/23/16 08:23 11/23/16 08:23 11/23/16 08:23 11/23/16 10:56 11/23/16 08:23 - Medications Medications: Current Medications Carvedilol (Coreg) 6.25 mg PO BID [facility] Last Admin: 11/23/16 10:59 Dose: 6.25 mg Clonidine HCl (Catapres) 0.2 mg PO TID [facility] Last Admin: 11/23/16 13:14 Dose: 0.2 mg Enalapril Maleate (Vasotec) 20 mg PO BID [facility] Last Admin: 11/23/16 10:55 Dose: 20 mg Furosemide (Lasix) 40 mg PO DAILY [facility] Last Admin: 11/23/16 10:56 Dose: 40 mg Gabapentin (Neurontin) 300 mg PO TID [facility] Last Admin: 11/23/16 13:14 Dose: 300 mg Cefepime HCl (Maxipime Iv 1 Gm Premix) 1 gm in 50 mls @ 100 mls/hr IVPB Q8H [facility] Last Admin: 11/23/16 13:14 Dose: 100 mls/hr Azithromycin 250 mg/ Sodium (Chloride) 250 mls @ 250 mls/hr IVPB Q24H [facility] Stop: 11/24/16 21:59 Last Admin: 11/22/16 21:05 Dose: 250 mls/hr Insulin Human Regular (Novolin R) 0 unit SC ACHS [facility] PRN Reason: Protocol Last Admin: 11/23/16 12:30 Dose: 8 unit Lactobacillus Acidophilus (Bacid Acidophilus) 1 cap PO BID [facility] Last Admin: 11/23/16 10:59 Dose: 1 cap Loperamide HCl (Imodium) 2 mg PO Q6H [facility] Last Admin: 11/23/16 11:19 Dose: 2 mg Metformin HCl (Glucophage) 500 mg PO BIDCC [facility] Metoprolol Succinate (Toprol Xl) 50 mg PO BID [facility] Last Admin: 11/23/16 10:59 Dose: 50 mg Potassium Chloride (K-Dur 20 Meq Er Tab) 20 meq PO DAILY [facility] Rosuvastatin Calcium (Crestor) 10 mg PO HS [facility] Last Admin: 11/22/16 21:09 Dose: 10 mg Tramadol HCl (Ultram) 50 mg PO Q8H PRN PRN Reason: Pain Last Admin: 11/20/16 23:06 Dose: 50 mg - Labs Labs: 11/23/16 07:28 11/23/16 07:28 PT 12.5 SECONDS (9.7-12.2) H 11/20/16 08:06 INR 1.1 11/20/16 08:06 APTT 35 SECONDS (21-34) H 11/20/16 08:06
--- NOTE | 2016-11-23 13:57 | CP.PCM.PN ---
Subjective - Date & Time of Evaluation Date of Evaluation: 11/23/16 Time of Evaluation: 13:57 - Subjective Subjective: CHIEF COMPLAINTS TODAY : afebrile c/o STILL watery bowel movements. 7-10/day SOILED THE BED/floor. blood culture reported positive for Salmonella-group C AT BEDSIDE. ROS. HEENT : N. Resp : No cough, wheezing ,pleuritic CP ,or hemoptysis Cardio : No anginal CP, PND, orthopnea, palpitation GI : POS abd.pain, n/v ,diarrhea NO GI bleeding . 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 Musculoskel : No joint swelling , Derm : No rash Psych : Normal affect. Ext : No swelling ,calf pain PE. Pt. is alert awake in no distress. V.S As noted in the chart Head ,ear nose,throat and eyes : Normal. Neck : Supple with normal carotids. Lungs: Clear air entry. Heart : S1 & S2 normal with S4. No murmur. Abd : Soft TENDER EPIGASTRIC, with normal bowel sounds. Neuro : Moves all ext. with no localized deficit. Ext : No edema with intact pulses.Non tender calves Derm : No rashes or decubitus ulcer. LABS/RADIOLOGY: blood cawbjcj-[id number] RODS. K2.5 BANDEMIA 13%. ASSESSMENT SEPSIS -Salmonella group C bacteremia source most likely spoiled food( meat ) r/o endocarditis..r/o occult abscess. Patient had history of right groin abscess MRSA .( NOW HEALED ) ASPIRATION PNEUMONIA , INFECTIOUS DIARRHEA CARDIOMYOPATHY/ HTN/ DM CAD/AICD PLAN : 2D ECHO R/O VEGETATIONS C2,C4,CH50 RH FACTOR CERETAC SCAN ABDOMEN/PELVIS R/O SPLENIC VS INTRA-ABDOMINAL ABSCESS. IV AMIKACIN 1000MG X 1 DOSE.11/21/16 CONTINUE iv CEFEPIME 1 G EVERY 8 HOURLY. 11/20/16 ZITHROMAX 250 MG OD DAILY.11/20/16 POTASSIUM SUPPLEMENT PER PMD FOLLOW-UP DIARRHEA WORKUP. ENTERIC PRECAUTIONS.case discussed with infection control MS JERONIMO AND STAFF..- Objective - Vital Signs/Intake and Output Vital Signs (last 24 hours): Temp Pulse Resp BP Pulse Ox 97.8 F 85 20 144/97 H 97 11/23/16 08:23 11/23/16 08:23 11/23/16 08:23 11/23/16 10:56 11/23/16 08:23 - Medications Medications: Current Medications Carvedilol (Coreg) 6.25 mg PO BID [facility] Last Admin: 11/23/16 10:59 Dose: 6.25 mg Clonidine HCl (Catapres) 0.2 mg PO TID [facility] Last Admin: 11/23/16 13:14 Dose: 0.2 mg Enalapril Maleate (Vasotec) 20 mg PO BID [facility] Last Admin: 11/23/16 10:55 Dose: 20 mg Furosemide (Lasix) 40 mg PO DAILY [facility] Last Admin: 11/23/16 10:56 Dose: 40 mg Gabapentin (Neurontin) 300 mg PO TID [facility] Last Admin: 11/23/16 13:14 Dose: 300 mg Cefepime HCl (Maxipime Iv 1 Gm Premix) 1 gm in 50 mls @ 100 mls/hr IVPB Q8H [facility] Last Admin: 11/23/16 13:14 Dose: 100 mls/hr Azithromycin 250 mg/ Sodium (Chloride) 250 mls @ 250 mls/hr IVPB Q24H [facility] Stop: 11/24/16 21:59 Last Admin: 11/22/16 21:05 Dose: 250 mls/hr Potassium Chloride (Potassium Chloride 20 Meq/100 Ml) 20 meq in 100 mls @ 50 mls/hr IVPB Q12 [facility] Insulin Human Regular (Novolin R) 0 unit SC ACHS [facility] PRN Reason: Protocol Last Admin: 11/23/16 12:30 Dose: 8 unit Lactobacillus Acidophilus (Bacid Acidophilus) 1 cap PO BID [facility] Last Admin: 11/23/16 10:59 Dose: 1 cap Loperamide HCl (Imodium) 2 mg PO Q6H [facility] Last Admin: 11/23/16 11:19 Dose: 2 mg Metformin HCl (Glucophage) 500 mg PO BIDCC [facility] Metoprolol Succinate (Toprol Xl) 50 mg PO BID [facility] Last Admin: 11/23/16 10:59 Dose: 50 mg Potassium Chloride (K-Dur 20 Meq Er Tab) 20 meq PO DAILY [facility] Rosuvastatin Calcium (Crestor) 10 mg PO HS [facility] Last Admin: 11/22/16 21:09 Dose: 10 mg Tramadol HCl (Ultram) 50 mg PO Q8H PRN PRN Reason: Pain Last Admin: 11/20/16 23:06 Dose: 50 mg - Labs Labs: 11/23/16 07:28 11/23/16 07:28 PT 12.5 SECONDS (9.7-12.2) H 11/20/16 08:06 INR 1.1 11/20/16 08:06 APTT 35 SECONDS (21-34) H 11/20/16 08:06 Assessment and Plan (1) Pneumonia Status: Acute (2) Gastroenteritis Status: Acute (3) Chest pain Status: Acute (4) HTN (hypertension) Status: Chronic (5) Diabetes Status: Chronic (6) Cardiomyopathy Status: Acute
[2016-11-23] MEDS: Azithromycin 250 MG in Sodium Chloride 0.9% 250 ML IVPB SCH (22:15)
[2016-11-24] MEDS: Cefepime IV 1 gm in Dextrose 1 GM/50 ML BAG IVPB SCH ×3 (05:21→21:37)
[2016-11-24] MEDS: (Novolin R) Insulin Human Regular 100 units/ml vial SC SCH ×4 (08:31→21:33)
[2016-11-24] MEDS: Potassium Chloride 20 mEq ER Tab PO SCH (10:59)
[2016-11-24] MEDS: Metoprolol Succinate 50 mg XL Tab PO SCH ×2 (10:59→21:35)
[2016-11-24] MEDS: Lactobacillus Acidophilus 500 MU Cap PO SCH ×2 (10:59→17:11)
--- NOTE | 2016-11-24 12:15 | NM ---
PROCEDURE: Ceretec labeled white blood cell study HISTORY: rule out intra-abdominal abscess/ splenic abscess. COMPARISON: 11/20/2016 CT abdomen and pelvis. 11/22/2016 chest radiograph TECHNIQUE: 18.5 mCi technetium 99 M Ceretec labeled white blood cells administered intravenously. Imaging at 2 and 20 hours per institutional protocol. FINDINGS: Expected uptake in the liver and spleen as well as alimentary tract. Mild increased uptake which is diffuse throughout the lungs consistent with inflammatory/infectious etiology without focal abnormality. IMPRESSION: No focal abnormalities thorax abdomen retroperitoneum or pelvis. Expected uptake in the reticuloendothelial system. Very mild increased uptake in the lungs consistent with inflammatory/ infectious etiologies. No focal abnormalities within the thorax.
--- NOTE | 2016-11-24 13:37 | CP.PCM.PN ---
Subjective - Date & Time of Evaluation Date of Evaluation: 11/24/16 Time of Evaluation: 13:40 - Subjective Subjective: CHIEF COMPLAINTS TODAY : DIARRHEA LESS BLD CULTURE POS , SALMONELLA GRP. C ROS. HEENT : N. Resp : No cough, wheezing ,pleuritic CP ,or hemoptysis Cardio : No anginal CP, PND, orthopnea, palpitation GI : POS abd.pain, n/v ,diarrhea NO GI bleeding . SENIOR PLANNING MANAGER : No headache, vertigo, focal deficit. Musculoskel : No joint swelling , Derm : No rash Psych : Normal affect. Ext : No swelling ,calf pain PE. Pt. is alert awake in no distress. V.S As noted in the chart Head ,ear nose,throat and eyes : Normal. Neck : Supple with normal carotids. Lungs: Clear air entry. Heart : S1 & S2 normal with S4. No murmur. Abd : Soft tender with normal bowel sounds. Neuro : Moves all ext. with no localized deficit. Ext : No edema with intact pulses.Non tender calves Derm : No rashes or decubitus ulcer. LABS/RADIOLOGY: K LOW , IV KCL ASSESSMENT/PLAN : IV AB Objective - Vital Signs/Intake and Output Vital Signs (last 24 hours): Temp Pulse Resp BP Pulse Ox 98.6 F 77 20 146/91 H 97 11/24/16 07:51 11/24/16 07:51 11/24/16 07:51 11/24/16 11:00 11/24/16 07:51 - Medications Medications: Current Medications Carvedilol (Coreg) 6.25 mg PO BID [facility] Last Admin: 11/24/16 10:59 Dose: 6.25 mg Clonidine HCl (Catapres) 0.2 mg PO TID [facility] Last Admin: 11/24/16 10:59 Dose: 0.2 mg Enalapril Maleate (Vasotec) 20 mg PO BID [facility] Last Admin: 11/24/16 11:00 Dose: 20 mg Furosemide (Lasix) 40 mg PO DAILY [facility] Last Admin: 11/24/16 10:59 Dose: 40 mg Gabapentin (Neurontin) 300 mg PO TID [facility] Last Admin: 11/24/16 10:59 Dose: 300 mg Cefepime HCl (Maxipime Iv 1 Gm Premix) 1 gm in 50 mls @ 100 mls/hr IVPB Q8H [facility] Last Admin: 11/24/16 12:06 Dose: 100 mls/hr Azithromycin 250 mg/ Sodium (Chloride) 250 mls @ 250 mls/hr IVPB Q24H [facility] Stop: 11/24/16 21:59 Last Admin: 11/23/16 22:15 Dose: 250 mls/hr Insulin Human Regular (Novolin R) 0 unit SC ACHS [facility] PRN Reason: Protocol Last Admin: 11/24/16 12:06 Dose: 6 unit Lactobacillus Acidophilus (Bacid Acidophilus) 1 cap PO BID [facility] Last Admin: 11/24/16 10:59 Dose: 1 cap Loperamide HCl (Imodium) 2 mg PO Q6H [facility] Last Admin: 11/24/16 10:59 Dose: 2 mg Metformin HCl (Glucophage) 500 mg PO BIDCC [facility] Metoprolol Succinate (Toprol Xl) 50 mg PO BID [facility] Last Admin: 11/24/16 10:59 Dose: 50 mg Potassium Chloride (K-Dur 20 Meq Er Tab) 20 meq PO DAILY [facility] Last Admin: 11/24/16 10:59 Dose: 20 meq Rosuvastatin Calcium (Crestor) 10 mg PO HS [facility] Last Admin: 11/23/16 22:08 Dose: 10 mg Tramadol HCl (Ultram) 50 mg PO Q8H PRN PRN Reason: Pain Last Admin: 11/20/16 23:06 Dose: 50 mg - Labs Labs: 11/23/16 07:28 11/23/16 07:28 PT 12.5 SECONDS (9.7-12.2) H 11/20/16 08:06 INR 1.1 11/20/16 08:06 APTT 35 SECONDS (21-34) H 11/20/16 08:06
--- NOTE | 2016-11-24 13:41 | CP.PCM.PN ---
Subjective - Date & Time of Evaluation Date of Evaluation: 11/24/16 Time of Evaluation: 13:41 - Subjective Subjective: CHIEF COMPLAINTS TODAY : afebrile DIARRHEA LESS blood culture reported positive for Salmonella-group C ROS. HEENT : N. Resp : No cough, wheezing ,pleuritic CP ,or hemoptysis Cardio : No anginal CP, PND, orthopnea, palpitation GI : POS abd.pain, n/v ,diarrhea NO GI bleeding . 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 Musculoskel : No joint swelling , Derm : No rash Psych : Normal affect. Ext : No swelling ,calf pain PE. Pt. is alert awake in no distress. V.S As noted in the chart Head ,ear nose,throat and eyes : Normal. Neck : Supple with normal carotids. Lungs: Clear air entry. Heart : S1 & S2 normal with S4. No murmur. Abd : Soft TENDER EPIGASTRIC, with normal bowel sounds. Neuro : Moves all ext. with no localized deficit. Ext : No edema with intact pulses.Non tender calves Derm : No rashes or decubitus ulcer. LABS/RADIOLOGY: blood culture-[facility] C STOOL CULTURE.- NOT SENT-?CANCELLED ?/ CERETAC SCAN WHOLE-BODY -VE except for very mild uptake lungs questionable inflammatory versus infectious etiology. chest x-ray 11/22/16-patchy bibasilar airspace opacities with small bilateral pleural effusions. ASSESSMENT SEPSIS -Salmonella group C bacteremia source most likely spoiled food( meat ) r/o endocarditis.. Patient had history of right groin abscess MRSA .( NOW HEALED ) ASPIRATION PNEUMONIA , INFECTIOUS DIARRHEA CARDIOMYOPATHY/ HTN/ DM CAD/AICD PLAN : 2D ECHO R/O VEGETATIONS C2,C4,CH50-P RH FACTOR-P IV AMIKACIN 1000MG X 1 DOSE.11/21/16 CONTINUE iv CEFEPIME 1 G EVERY 8 HOURLY. 11/20/16 ZITHROMAX 250 MG OD DAILY.11/20/16 POTASSIUM SUPPLEMENT PER PMD STOOL FOR CULTURE ORDERED.. ENTERIC PRECAUTIONS.case discussed with infection control MS JERONIMO AND STAFF..- Objective - Vital Signs/Intake and Output Vital Signs (last 24 hours): Temp Pulse Resp BP Pulse Ox 98.6 F 77 20 146/91 H 97 11/24/16 07:51 11/24/16 07:51 11/24/16 07:51 11/24/16 11:00 11/24/16 07:51 - Medications Medications: Current Medications Carvedilol (Coreg) 6.25 mg PO BID [facility] Last Admin: 11/24/16 10:59 Dose: 6.25 mg Clonidine HCl (Catapres) 0.2 mg PO TID [facility] Last Admin: 11/24/16 10:59 Dose: 0.2 mg Enalapril Maleate (Vasotec) 20 mg PO BID [facility] Last Admin: 11/24/16 11:00 Dose: 20 mg Furosemide (Lasix) 40 mg PO DAILY [facility] Last Admin: 11/24/16 10:59 Dose: 40 mg Gabapentin (Neurontin) 300 mg PO TID [facility] Last Admin: 11/24/16 10:59 Dose: 300 mg Cefepime HCl (Maxipime Iv 1 Gm Premix) 1 gm in 50 mls @ 100 mls/hr IVPB Q8H [facility] Last Admin: 11/24/16 12:06 Dose: 100 mls/hr Azithromycin 250 mg/ Sodium (Chloride) 250 mls @ 250 mls/hr IVPB Q24H [facility] Stop: 11/24/16 21:59 Last Admin: 11/23/16 22:15 Dose: 250 mls/hr Insulin Human Regular (Novolin R) 0 unit SC ACHS [facility] PRN Reason: Protocol Last Admin: 11/24/16 12:06 Dose: 6 unit Lactobacillus Acidophilus (Bacid Acidophilus) 1 cap PO BID [facility] Last Admin: 11/24/16 10:59 Dose: 1 cap Loperamide HCl (Imodium) 2 mg PO Q6H [facility] Last Admin: 11/24/16 10:59 Dose: 2 mg Met[facility] ([facility]) [facility] Metoprolol Succinate (Toprol Xl) 50 mg PO BID [facility] Last Admin: 11/24/16 10:59 Dose: 50 mg Potassium Chloride (K-Dur 20 Meq Er Tab) 20 meq PO DAILY [facility] Last Admin: 11/24/16 10:59 Dose: 20 meq Rosuvastatin Calcium (Crestor) 10 mg PO HS [facility] Last Admin: 11/23/16 22:08 Dose: 10 mg Tramadol HCl (Ultram) 50 mg PO Q8H PRN PRN Reason: Pain Last Admin: 11/20/16 23:06 Dose: 50 mg - Labs Labs: 11/23/16 07:28 11/23/16 07:28 PT 12.5 SECONDS (9.7-12.2) H 11/20/16 08:06 INR 1.1 11/20/16 08:06 APTT 35 SECONDS (21-34) H 11/20/16 08:06 Assessment and Plan (1) Salmonella bacteremia Status: Acute (2) Pneumonia Status: Acute (3) Gastroenteritis Assessment & Plan: probably salmonellosis Will send stools for culture for salmonella. Strict enteric precautions. Status: Acute (4) Chest pain Status: Acute (5) HTN (hypertension) Status: Chronic (6) Diabetes Status: Chronic (7) Cardiomyopathy Status: Acute
[2016-11-24] MEDS: Azithromycin 250 MG in Sodium Chloride 0.9% 250 ML IVPB SCH (21:35)
[2016-11-25] MEDS: Cefepime IV 1 gm in Dextrose 1 GM/50 ML BAG IVPB SCH ×3 (05:20→21:24)
[2016-11-25] MEDS: (Novolin R) Insulin Human Regular 100 units/ml vial SC SCH ×4 (08:55→21:34)
[2016-11-25] MEDS: Lactobacillus Acidophilus 500 MU Cap PO SCH ×2 (09:09→18:32)
[2016-11-25] MEDS: Potassium Chloride 20 mEq ER Tab PO SCH (09:09)
[2016-11-25] MEDS: Metoprolol Succinate 50 mg XL Tab PO SCH ×2 (09:13→18:33)
--- NOTE | 2016-11-25 13:53 | CP.PCM.PN ---
Subjective - Date & Time of Evaluation Date of Evaluation: 11/25/16 Time of Evaluation: 13:53 - Subjective Subjective: CHIEF COMPLAINTS TODAY : DIARRHEA LESS BLD CULTURE POS , SALMONELLA GRP. C ROS. HEENT : N. Resp : No cough, wheezing ,pleuritic CP ,or hemoptysis Cardio : No anginal CP, PND, orthopnea, palpitation GI : POS abd.pain, n/v ,diarrhea NO GI bleeding . 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 Musculoskel : No joint swelling , Derm : No rash Psych : Normal affect. Ext : No swelling ,calf pain PE. Pt. is alert awake in no distress. V.S As noted in the chart Head ,ear nose,throat and eyes : Normal. Neck : Supple with normal carotids. Lungs: Clear air entry. Heart : S1 & S2 normal with S4. No murmur. Abd : Soft tender with normal bowel sounds. Neuro : Moves all ext. with no localized deficit. Ext : No edema with intact pulses.Non tender calves Derm : No rashes or decubitus ulcer. LABS/RADIOLOGY: K LOW , IV KCL ASSESSMENT/PLAN : IV AB Objective - Vital Signs/Intake and Output Vital Signs (last 24 hours): Temp Pulse Resp BP Pulse Ox 97.4 F L 90 18 154/99 H 99 11/25/16 07:15 11/25/16 07:30 11/25/16 07:15 11/25/16 09:12 11/25/16 07:15 Intake and Output: 11/25/16 11/25/16 11:59 23:59 Intake Total 170 Balance 170 - Medications Medications: Current Medications Carvedilol (Coreg) 6.25 mg PO BID [facility] Last Admin: 11/25/16 09:13 Dose: 6.25 mg Clonidine HCl (Catapres) 0.2 mg PO TID [facility] Last Admin: 11/25/16 13:30 Dose: 0.2 mg Enalapril Maleate (Vasotec) 20 mg PO BID [facility] Last Admin: 11/25/16 09:11 Dose: 20 mg Furosemide (Lasix) 40 mg PO DAILY [facility] Last Admin: 11/25/16 09:12 Dose: 40 mg Gabapentin (Neurontin) 300 mg PO TID [facility] Last Admin: 11/25/16 13:52 Dose: 300 mg Cefepime HCl (Maxipime Iv 1 Gm Premix) 1 gm in 50 mls @ 100 mls/hr IVPB Q8H [facility] Last Admin: 11/25/16 13:30 Dose: 100 mls/hr Insulin Human Regular (Novolin R) 0 unit SC ACHS [facility] PRN Reason: Protocol Last Admin: 11/25/16 12:59 Dose: 6 unit Lactobacillus Acidophilus (Bacid Acidophilus) 1 cap PO BID [facility] Last Admin: 11/25/16 09:09 Dose: 1 cap Loperamide HCl (Imodium) 2 mg PO Q6H [facility] Last Admin: 11/25/16 12:53 Dose: 2 mg Metformin HCl (Glucophage) 500 mg PO BIDCC [facility] Metoprolol Succinate (Toprol Xl) 50 mg PO BID [facility] Last Admin: 11/25/16 09:13 Dose: 50 mg Potassium Chloride (K-Dur 20 Meq Er Tab) 20 meq PO DAILY [facility] Last Admin: 11/25/16 09:09 Dose: 20 meq Rosuvastatin Calcium (Crestor) 10 mg PO HS [facility] Last Admin: 11/24/16 21:38 Dose: 10 mg Tramadol HCl (Ultram) 50 mg PO Q8H PRN PRN Reason: Pain Last Admin: 11/20/16 23:06 Dose: 50 mg - Labs Labs: 11/23/16 07:28 11/23/16 07:28 PT 12.5 SECONDS (9.7-12.2) H 11/20/16 08:06 INR 1.1 11/20/16 08:06 APTT 35 SECONDS (21-34) H 11/20/16 08:06
--- NOTE | 2016-11-25 14:03 | CP.PCM.PN ---
Subjective - Date & Time of Evaluation Date of Evaluation: 11/25/16 Time of Evaluation: 14:03 - Subjective Subjective: CHIEF COMPLAINTS TODAY : afebrile DIARRHEA LESS blood culture reported positive for Salmonella-group C ROS. HEENT : N. Resp : No cough, wheezing ,pleuritic CP ,or hemoptysis Cardio : No anginal CP, PND, orthopnea, palpitation GI : POS abd.pain, n/v ,diarrhea NO GI bleeding . 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 Musculoskel : No joint swelling , Derm : No rash Psych : Normal affect. Ext : No swelling ,calf pain PE. Pt. is alert awake in no distress. V.S As noted in the chart Head ,ear nose,throat and eyes : Normal. Neck : Supple with normal carotids. Lungs: Clear air entry. Heart : S1 & S2 normal with S4. No murmur. Abd : Soft TENDER EPIGASTRIC, with normal bowel sounds. Neuro : Moves all ext. with no localized deficit. Ext : No edema with intact pulses.Non tender calves Derm : No rashes or decubitus ulcer. LABS/RADIOLOGY: blood culture-[facility] C s - ampicillin, Cipro, TMP-SMX. STOOL CULTURE.- NOT SENT-?CANCELLED ?/ CERETAC SCAN WHOLE-BODY -VE except for very mild uptake lungs questionable inflammatory versus infectious etiology. chest x-ray 11/22/16-patchy bibasilar airspace opacities with small bilateral pleural effusions. ASSESSMENT SEPSIS -Salmonella group C bacteremia source most likely spoiled food( meat ) r/o endocarditis.. Patient had history of right groin abscess MRSA .( NOW HEALED ) ASPIRATION PNEUMONIA , INFECTIOUS DIARRHEA CARDIOMYOPATHY/ HTN/ DM CAD/AICD PLAN : REPEAT BLOOD CULTURE TO SEE IF BACTEREMIA CLEARED.. CONTINUE iv CEFEPIME 1 G EVERY 8 HOURLY. 11/20/16 f/u 2D ECHO ZITHROMAX 250 MG OD DAILY.11/20/16 F/U CXR . POTASSIUM SUPPLEMENT PER PMD STOOL FOR CULTURE ORDERED.. ENTERIC PRECAUTIONS.case discussed WITH STAFF..- Objective - Vital Signs/Intake and Output Vital Signs (last 24 hours): Temp Pulse Resp BP Pulse Ox 97.4 F L 90 18 154/99 H 99 11/25/16 07:15 11/25/16 07:30 11/25/16 07:15 11/25/16 09:12 11/25/16 07:15 Intake and Output: 11/25/16 11/25/16 06:59 18:59 Intake Total 170 Balance 170 - Medications Medications: Current Medications Carvedilol (Coreg) 6.25 mg PO BID [facility] Last Admin: 11/25/16 09:13 Dose: 6.25 mg Clonidine HCl (Catapres) 0.2 mg PO TID [facility] Last Admin: 11/25/16 13:30 Dose: 0.2 mg Enalapril Maleate (Vasotec) 20 mg PO BID [facility] Last Admin: 11/25/16 09:11 Dose: 20 mg Furosemide (Lasix) 40 mg PO DAILY [facility] Last Admin: 11/25/16 09:12 Dose: 40 mg Gabapentin (Neurontin) 300 mg PO TID [facility] Last Admin: 11/25/16 13:52 Dose: 300 mg Cefepime HCl (Maxipime Iv 1 Gm Premix) 1 gm in 50 mls @ 100 mls/hr IVPB Q8H [facility] Last Admin: 11/25/16 13:30 Dose: 100 mls/hr Insulin Human Regular (Novolin R) 0 unit SC ACHS [facility] PRN Reason: Protocol Last Admin: 11/25/16 12:59 Dose: 6 unit Lactobacillus Acidophilus (Bacid Acidophilus) 1 cap PO BID [facility] Last Admin: 11/25/16 09:09 Dose: 1 cap Loperamide HCl (Imodium) 2 mg PO Q6H [facility] Last Admin: 11/25/16 12:53 Dose: 2 mg Metformin [facility] (Glucophage) [facility] Metoprolol Succinate (Toprol Xl) 50 mg PO BID [facility] Last Admin: 11/25/16 09:13 Dose: 50 mg Potassium Chloride (K-Dur 20 Meq Er Tab) 20 meq PO DAILY [facility] Last Admin: 11/25/16 09:09 Dose: 20 meq Rosuvastatin Calcium (Crestor) 10 mg PO HS [facility] Last Admin: 11/24/16 21:38 Dose: 10 mg Tramadol HCl (Ultram) 50 mg PO Q8H PRN PRN Reason: Pain Last Admin: 11/20/16 23:06 Dose: 50 mg - Labs Labs: 11/23/16 07:28 11/23/16 07:28 PT 12.5 SECONDS (9.7-12.2) H 11/20/16 08:06 INR 1.1 11/20/16 08:06 APTT 35 SECONDS (21-34) H 11/20/16 08:06 Assessment and Plan (1) Salmonella bacteremia Status: Acute (2) Pneumonia Status: Acute (3) Gastroenteritis Status: Acute (4) Chest pain Status: Acute (5) HTN (hypertension) Status: Chronic (6) Diabetes Status: Chronic (7) Cardiomyopathy Status: Acute
[2016-11-26] MEDS: Cefepime IV 1 gm in Dextrose 1 GM/50 ML BAG IVPB SCH ×3 (05:12→21:52)
[2016-11-26 08:16] LABS: ALBUMIN 3.3 g/dL (3.5-5.0)
[2016-11-26 08:19] LABS: AST/SGOT 200 U/L (17-59); GFR AFRICAN-AMERICAN > 60; GFR NON-AFRICAN AMERICAN > 60
[2016-11-26 08:20] LABS: ALB/GLOB RATIO 1.1 (1.0-2.1); ALT/SGPT 170 U/L (21-72); BLOOD UREA NITROGEN 9 mg/dL (9-20); CALCIUM 8.4 mg/dl (8.6-10.4)
[2016-11-26] MEDS: (Novolin R) Insulin Human Regular 100 units/ml vial SC SCH ×4 (08:34→21:54)
[2016-11-26] MEDS: Lactobacillus Acidophilus 500 MU Cap PO SCH ×2 (09:04→18:56)
[2016-11-26] MEDS: Metoprolol Succinate 50 mg XL Tab PO SCH ×2 (09:06→18:57)
[2016-11-26] MEDS: Potassium Chloride 20 mEq ER Tab PO SCH (09:06)
--- NOTE | 2016-11-26 15:27 | CP.PCM.PN ---
Subjective - Date & Time of Evaluation Date of Evaluation: 11/26/16 Time of Evaluation: 15:26 - Subjective Subjective: CHIEF COMPLAINTS TODAY : DIARRHEA LESS BLD CULTURE POS , SALMONELLA GRP. C SUGARS UP LFT UP ROS. HEENT : N. Resp : No cough, wheezing ,pleuritic CP ,or hemoptysis Cardio : No anginal CP, PND, orthopnea, palpitation GI : POS abd.pain, n/v ,diarrhea NO GI bleeding . 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 Musculoskel : No joint swelling , Derm : No rash Psych : Normal affect. Ext : No swelling ,calf pain PE. Pt. is alert awake in no distress. V.S As noted in the chart Head ,ear nose,throat and eyes : Normal. Neck : Supple with normal carotids. Lungs: Clear air entry. Heart : S1 & S2 normal with S4. No murmur. Abd : Soft tender with normal bowel sounds. Neuro : Moves all ext. with no localized deficit. Ext : No edema with intact pulses.Non tender calves Derm : No rashes or decubitus ulcer. LABS/RADIOLOGY: K LOW , IV KCL ASSESSMENT/PLAN : IV AB ADD LANTUS LFT Objective - Vital Signs/Intake and Output Vital Signs (last 24 hours): Temp Pulse Resp BP Pulse Ox 98.4 F 88 18 135/72 97 11/26/16 07:20 11/26/16 07:40 11/26/16 07:20 11/26/16 09:05 11/26/16 07:20 Intake and Output: 11/26/16 11/26/16 11:59 23:59 Intake Total 290 Balance 290 - Medications Medications: Current Medications Carvedilol (Coreg) 6.25 mg PO BID [facility] Last Admin: 11/26/16 09:05 Dose: 6.25 mg Clonidine HCl (Catapres) 0.2 mg PO TID [facility] Last Admin: 11/26/16 14:13 Dose: 0.2 mg Enalapril Maleate (Vasotec) 20 mg PO BID [facility] Last Admin: 11/26/16 09:05 Dose: 20 mg Furosemide (Lasix) 40 mg PO DAILY [facility] Last Admin: 11/26/16 09:04 Dose: 40 mg Gabapentin (Neurontin) 300 mg PO TID [facility] Last Admin: 11/26/16 14:12 Dose: 300 mg Cefepime HCl (Maxipime Iv 1 Gm Premix) 1 gm in 50 mls @ 100 mls/hr IVPB Q8H [facility] Last Admin: 11/26/16 13:20 Dose: 100 mls/hr Insulin Human Regular (Novolin R) 0 unit SC ACHS [facility] PRN Reason: Protocol Last Admin: 11/26/16 12:15 Dose: 10 unit Lactobacillus Acidophilus (Bacid Acidophilus) 1 cap PO BID [facility] Last Admin: 11/26/16 09:04 Dose: 1 cap Loperamide HCl (Imodium) 2 mg PO Q6H [facility] Last Admin: 11/26/16 10:45 Dose: 2 mg Metformin HCl (Glucophage) 500 mg PO BIDCC [facility] Metoprolol Succinate (Toprol Xl) 50 mg PO BID [facility] Last Admin: 11/26/16 09:06 Dose: 50 mg Potassium Chloride (K-Dur 20 Meq Er Tab) 20 meq PO DAILY [facility] Last Admin: 11/26/16 09:06 Dose: 20 meq Rosuvastatin Calcium (Crestor) 10 mg PO HS [facility] Last Admin: 11/25/16 21:23 Dose: 10 mg Tramadol HCl (Ultram) 50 mg PO Q8H PRN PRN Reason: Pain Last Admin: 11/20/16 23:06 Dose: 50 mg - Labs Labs: 11/23/16 07:28 11/26/16 07:38 PT 12.5 SECONDS (9.7-12.2) H 11/20/16 08:06 INR 1.1 11/20/16 08:06 APTT 35 SECONDS (21-34) H 11/20/16 08:06
--- NOTE | 2016-11-26 18:40 | CP.PCM.PN ---
Subjective - Date & Time of Evaluation Date of Evaluation: 11/26/16 Time of Evaluation: 18:40 - Subjective Subjective: CHIEF COMPLAINTS TODAY : afebrile DIARRHEA LESS blood culture reported positive for Salmonella-group C STOOL +VE GNR - -P identification ROS. HEENT : N. Resp : No cough, wheezing ,pleuritic CP ,or hemoptysis Cardio : No anginal CP, PND, orthopnea, palpitation GI : POS abd.pain, n/v ,diarrhea NO GI bleeding . 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 Musculoskel : No joint swelling , Derm : No rash Psych : Normal affect. Ext : No swelling ,calf pain PE. Pt. is alert awake in no distress. V.S As noted in the chart Head ,ear nose,throat and eyes : Normal. Neck : Supple with normal carotids. Lungs: Clear air entry. Heart : S1 & S2 normal with S4. No murmur. Abd : Soft TENDER EPIGASTRIC, with normal bowel sounds. Neuro : Moves all ext. with no localized deficit. Ext : No edema with intact pulses.Non tender calves Derm : No rashes or decubitus ulcer. LABS/RADIOLOGY: blood culture-[facility] C s - ampicillin, Cipro, TMP-SMX. STOOL Culture -p LFTS AST 200.ALT 170, AP 304 increasing CERETAC SCAN WHOLE-BODY -VE except for very mild uptake lungs questionable inflammatory versus infectious etiology. chest x-ray 11/22/16-patchy bibasilar airspace opacities with small bilateral pleural effusions. ASSESSMENT SEPSIS -Salmonella group C bacteremia source most likely spoiled food( meat ) Patient had history of right groin abscess MRSA .( NOW HEALED ) ASPIRATION PNEUMONIA , INFECTIOUS DIARRHEA - gnr stools transaminitis ? drug-induced CARDIOMYOPATHY/ HTN/ DM CAD/AICD PLAN : DC Crestor Off Zithromax. Follow-up LFTs in a.m. REPEAT BLOOD CULTURE TO SEE IF BACTEREMIA CLEARED.. CONTINUE iv CEFEPIME 1 G EVERY 8 HOURLY. 11/20/16 PMD STOOL FOR CULTURE -P. Objective - Vital Signs/Intake and Output Vital Signs (last 24 hours): Temp Pulse Resp BP Pulse Ox 98 F 85 20 95/66 L 96 11/26/16 16:20 11/26/16 16:20 11/26/16 16:20 11/26/16 16:20 11/26/16 16:20 Intake and Output: 11/26/16 11/26/16 06:59 18:59 Intake Total 290 Balance 290 - Medications Medications: Current Medications Carvedilol (Coreg) 6.25 mg PO BID [facility] Last Admin: 11/26/16 09:05 Dose: 6.25 mg Clonidine HCl (Catapres) 0.2 mg PO TID [facility] Last Admin: 11/26/16 14:13 Dose: 0.2 mg Enalapril Maleate (Vasotec) 20 mg PO BID [facility] Last Admin: 11/26/16 09:05 Dose: 20 mg Furosemide (Lasix) 40 mg PO DAILY [facility] Last Admin: 11/26/16 09:04 Dose: 40 mg Gabapentin (Neurontin) 300 mg PO TID [facility] Last Admin: 11/26/16 14:12 Dose: 300 mg Cefepime HCl (Maxipime Iv 1 Gm Premix) 1 gm in 50 mls @ 100 mls/hr IVPB Q8H [facility] Last Admin: 11/26/16 13:20 Dose: 100 mls/hr Insulin Glargine (Lantus) 25 unit SC [facility] Insulin Human Regular (Novolin R) 0 unit SC [facility] PRN Reason: Protocol Last Admin: 11/26/16 12:15 Dose: 10 unit Lactobacillus Acidophilus (Bacid Acidophilus) 1 cap PO BID [facility] Last Admin: 11/26/16 09:04 Dose: 1 cap Loperamide HCl (Imodium) 2 mg PO Q6H [facility] Last Admin: 11/26/16 10:45 Dose: 2 mg [facility] Metoprolol Succinate (Toprol Xl) 50 mg PO BID [facility] Last Admin: 11/26/16 09:06 Dose: 50 mg Potassium Chloride (K-Dur 20 Meq Er Tab) 20 meq PO DAILY [facility] Last Admin: 11/26/16 09:06 Dose: 20 meq Rosuvastatin Calcium (Crestor) 10 mg PO HS [facility] Last Admin: 11/25/16 21:23 Dose: 10 mg Tramadol HCl (Ultram) 50 mg PO Q8H PRN PRN Reason: Pain Last Admin: 11/20/16 23:06 Dose: 50 mg - Labs Labs: 11/23/16 07:28 11/26/16 07:38 PT 12.5 SECONDS (9.7-12.2) H 11/20/16 08:06 INR 1.1 11/20/16 08:06 APTT 35 SECONDS (21-34) H 11/20/16 08:06 Assessment and Plan (1) Salmonella bacteremia Status: Acute (2) Pneumonia Status: Acute (3) Gastroenteritis Status: Acute (4) Chest pain Status: Acute (5) HTN (hypertension) Status: Chronic (6) Diabetes Status: Chronic (7) Cardiomyopathy Status: Acute
[2016-11-26] MEDS ORDERED: (Lantus) Insulin Glargine, Recombinant SC SCH (22:00)
[2016-11-27] MEDS ORDERED: (Novolin R) Insulin Human Regular 100 units/ml vial SC ONE (02:30)
[2016-11-27] MEDS ORDERED: (Novolog) Insulin Aspart, Recombinant 100 u/ml 10 ml vial SC STA (02:38)
[2016-11-27] MEDS: Cefepime IV 1 gm in Dextrose 1 GM/50 ML BAG IVPB SCH ×2 (04:50→12:00)
[2016-11-27 07:44] LABS: ALBUMIN 3.7 g/dL (3.5-5.0)
[2016-11-27 07:47] LABS: ALB/GLOB RATIO 1.2 (1.0-2.1); BILIRUBIN,DIRECT 0.3 mg/dL (0.0-0.4)
[2016-11-27] MEDS: (Novolin R) Insulin Human Regular 100 units/ml vial SC SCH ×3 (08:30→17:54)
[2016-11-27] MEDS: Metoprolol Succinate 50 mg XL Tab PO SCH ×2 (10:19→17:52)
[2016-11-27] MEDS: Potassium Chloride 20 mEq ER Tab PO SCH (10:20)
[2016-11-27] MEDS: Lactobacillus Acidophilus 500 MU Cap PO SCH ×2 (10:23→17:52)
--- NOTE | 2016-11-27 11:40 | CP.PCM.PN ---
Subjective - Date & Time of Evaluation Date of Evaluation: 11/27/16 Time of Evaluation: 11:40 - Subjective Subjective: CHIEF COMPLAINTS TODAY : afebrile DIARRHEA LESS blood culture reported positive for Salmonella-group C STOOL +VE GNR - -P identification ROS. HEENT : N. Resp : No cough, wheezing ,pleuritic CP ,or hemoptysis Cardio : No anginal CP, PND, orthopnea, palpitation GI : POS abd.pain, n/v ,diarrhea NO GI bleeding . 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 Musculoskel : No joint swelling , Derm : No rash Psych : Normal affect. Ext : No swelling ,calf pain PE. Pt. is alert awake in no distress. V.S As noted in the chart Head ,ear nose,throat and eyes : Normal. Neck : Supple with normal carotids. Lungs: Clear air entry. Heart : S1 & S2 normal with S4. No murmur. Abd : Soft TENDER EPIGASTRIC, with normal bowel sounds. Neuro : Moves all ext. with no localized deficit. Ext : No edema with intact pulses.Non tender calves Derm : No rashes or decubitus ulcer. LABS/RADIOLOGY: REPEAT BLOOD CULTURE 11/25/16 -VE FOR 48 HOURS. blood culture-[facility] C s - ampicillin, Cipro, TMP-SMX. STOOL Culture -GNR IDENTIFICATION PENDING. LFTS 11/27/16 AST 33ALT 108, AP 233 ,BILIRUBIN 1.2 IMPROVING CERETAC SCAN WHOLE-BODY -VE except for very mild uptake lungs questionable inflammatory versus infectious etiology. chest x-ray 11/22/16-patchy bibasilar airspace opacities with small bilateral pleural effusions. ASSESSMENT. SEPSIS -Salmonella group C bacteremia source most likely spoiled food( meat ) Patient had history of right groin abscess MRSA .( NOW HEALED ) ASPIRATION PNEUMONIA , INFECTIOUS DIARRHEA - gnr stools transaminitis ? drug-induced CARDIOMYOPATHY/ HTN/ DM CAD/AICD PLAN : DC Crestor Off Zithromax. CONTINUE iv CEFEPIME 1 G EVERY 8 HOURLY. 11/20/16 FOR 5 DAYS MORE PMD F/U STOOL FOR CULTURE -P. CASE DISCUSSED WITH NURSE PRACTITIONER MS Serena Mustafa. pATIENT FOR SUBACUTE REHABILITATION. Objective - Vital Signs/Intake and Output Vital Signs (last 24 hours): Temp Pulse Resp BP Pulse Ox 98.2 F 82 18 128/70 95 11/27/16 07:20 11/27/16 07:30 11/27/16 07:20 11/27/16 10:23 11/27/16 07:20 Intake and Output: 11/27/16 11/27/16 06:59 18:59 Intake Total 290 Balance 290 - Medications Medications: Current Medications Carvedilol (Coreg) 6.25 mg PO BID [facility] Last Admin: 11/27/16 10:22 Dose: 6.25 mg Clonidine HCl (Catapres) 0.2 mg PO TID [facility] Last Admin: 11/27/16 10:23 Dose: 0.2 mg Enalapril Maleate (Vasotec) 20 mg PO BID [facility] Last Admin: 11/27/16 10:22 Dose: 20 mg Furosemide (Lasix) 40 mg PO DAILY [facility] Last Admin: 11/27/16 10:23 Dose: 40 mg Gabapentin (Neurontin) 300 mg PO TID [facility] Last Admin: 11/27/16 10:19 Dose: 300 mg Cefepime HCl (Maxipime Iv 1 Gm Premix) 1 gm in 50 mls @ 100 mls/hr IVPB Q8H [facility] Last Admin: 11/27/16 04:50 Dose: 100 mls/hr Insulin Glargine (Lantus) 25 unit SC HS [facility] Last Admin: 11/26/16 21:53 Dose: 25 units Insulin Human Regular (Novolin R) 0 unit SC ACHS [facility] PRN Reason: Protocol Last Admin: 11/27/16 08:30 Dose: 6 unit Lactobacillus Acidophilus (Bacid Acidophilus) 1 cap PO BID [facility] Last Admin: 11/27/16 10:23 Dose: 1 cap Loperamide HCl (Imodium) 2 mg PO Q6H [facility] Last Admin: 11/27/16 10:21 Dose: 2 mg Metformin HCl (Glucophage) 500 mg PO BIDCC [facility] Metoprolol Succinate (Toprol Xl) 50 mg PO BID [facility] Last Admin: 11/27/16 10:19 Dose: 50 mg Potassium Chloride (K-Dur 20 Meq Er Tab) 20 meq PO DAILY [facility] Last Admin: 11/27/16 10:20 Dose: 20 meq Tramadol HCl (Ultram) 50 mg PO Q8H PRN PRN Reason: Pain Last Admin: 11/20/16 23:06 Dose: 50 mg - Labs Labs: 11/23/16 07:28 11/26/16 07:38 PT 12.5 SECONDS (9.7-12.2) H 11/20/16 08:06 INR 1.1 11/20/16 08:06 APTT 35 SECONDS (21-34) H 11/20/16 08:06 Assessment and Plan (1) Salmonella bacteremia Status: Acute (2) Pneumonia Status: Acute (3) Gastroenteritis Status: Acute (4) Chest pain Status: Acute (5) HTN (hypertension) Status: Chronic (6) Diabetes Status: Chronic (7) Cardiomyopathy Status: Acute
--- NOTE | 2016-11-27 13:43 | CP.PCM.PN ---
Subjective - Date & Time of Evaluation Date of Evaluation: 11/27/16 Time of Evaluation: 13:42 - Subjective Subjective: CHIEF COMPLAINTS TODAY : DIARRHEA LESS BLD CULTURE POS , SALMONELLA GRP. C SUGARS UP LFT UP ROS. HEENT : N. Resp : No cough, wheezing ,pleuritic CP ,or hemoptysis Cardio : No anginal CP, PND, orthopnea, palpitation GI : POS abd.pain, n/v ,diarrhea NO GI bleeding . [employer] INTERN : No headache, vertigo, focal deficit. Musculoskel : No joint swelling , Derm : No rash Psych : Normal affect. Ext : No swelling ,calf pain PE. Pt. is alert awake in no distress. V.S As noted in the chart Head ,ear nose,throat and eyes : Normal. Neck : Supple with normal carotids. Lungs: Clear air entry. Heart : S1 & S2 normal with S4. No murmur. Abd : Soft tender with normal bowel sounds. Neuro : Moves all ext. with no localized deficit. Ext : No edema with intact pulses.Non tender calves Derm : No rashes or decubitus ulcer. LABS/RADIOLOGY: K LOW , IV KCL ASSESSMENT/PLAN : IV AB ADD JANUVIA LFT IMPROVING INCREASE LANTUS TO 30 U Objective - Vital Signs/Intake and Output Vital Signs (last 24 hours): Temp Pulse Resp BP Pulse Ox 98.2 F 82 18 128/70 95 11/27/16 07:20 11/27/16 07:30 11/27/16 07:20 11/27/16 10:23 11/27/16 07:20 Intake and Output: 11/27/16 11/27/16 11:59 23:59 Intake Total 290 Balance 290 - Medications Medications: Current Medications Carvedilol (Coreg) 6.25 mg PO BID [facility] Last Admin: 11/27/16 10:22 Dose: 6.25 mg Clonidine HCl (Catapres) 0.2 mg PO TID [facility] Last Admin: 11/27/16 10:23 Dose: 0.2 mg Enalapril Maleate (Vasotec) 20 mg PO BID [facility] Last Admin: 11/27/16 10:22 Dose: 20 mg Furosemide (Lasix) 40 mg PO DAILY [facility] Last Admin: 11/27/16 10:23 Dose: 40 mg Gabapentin (Neurontin) 300 mg PO TID [facility] Last Admin: 11/27/16 10:19 Dose: 300 mg Cefepime HCl (Maxipime Iv 1 Gm Premix) 1 gm in 50 mls @ 100 mls/hr IVPB Q8H [facility] Last Admin: 11/27/16 12:00 Dose: 100 mls/hr Insulin Glargine (Lantus) 25 unit SC HS [facility] Last Admin: 11/26/16 21:53 Dose: 25 units Insulin Glargine (Lantus) 30 unit SC HS [facility] Insulin Human Regular (Novolin R) 0 unit SC ACHS ENRIQUE PRN Reason: Protocol Last Admin: 11/27/16 11:59 Dose: 8 unit Lactobacillus Acidophilus (Bacid Acidophilus) 1 cap PO BID [facility] Last Admin: 11/27/16 10:23 Dose: 1 cap Loperamide HCl (Imodium) 2 mg PO Q6H [facility] Last Admin: 11/27/16 10:21 Dose: 2 mg Metformin HCl (Glucophage) 500 mg PO BIDCC [facility] Metoprolol Succinate (Toprol Xl) 50 mg PO BID [facility] Last Admin: 11/27/16 10:19 Dose: 50 mg Potassium Chloride (K-Dur 20 Meq Er Tab) 20 meq PO DAILY [facility] Last Admin: 11/27/16 10:20 Dose: 20 meq Sitagliptin Phosphate (Januvia) 50 mg PO DAILY [facility] Tramadol HCl (Ultram) 50 mg PO Q8H PRN PRN Reason: Pain Last Admin: 11/20/16 23:06 Dose: 50 mg - Labs Labs: 11/23/16 07:28 11/26/16 07:38 PT 12.5 SECONDS (9.7-12.2) H 11/20/16 08:06 INR 1.1 11/20/16 08:06 APTT 35 SECONDS (21-34) H 11/20/16 08:06
[2016-11-27 14:01] LABS: EOS # 0.8 K/uL (0.0-0.7)
[2016-11-27 14:07] LABS: BASO # 0.2 K/uL (0.0-0.2); EOS % 5.4 % (0.0-4.0); HEMOGLOBIN 15.4 g/dL (12.0-18.0); LYMPH # 2.1 K/uL (1.0-4.3); LYMPH % 13.8 % (20.0-40.0); MEAN CELL VOLUME 84.7 fL (80.0-94.0); MEAN CORPUSCULAR HGB CONC 34.2 g/dL (33.0-37.0); MEAN PLATELET VOLUME 10.3 fL (7.2-11.7); MONO # 0.8 K/uL (0.0-0.8); MONO % 5.6 % (0.0-10.0); NEUT # 11.1 K/uL (1.8-7.0); NEUT % 74.2 % (50.0-75.0); RBC 5.32 Mil/uL (4.40-5.90); RED CELL DISTRIBUTION WIDTH 13.4 % (11.5-14.5)
[2016-11-27 14:11] LABS: ALB/GLOB RATIO 1.1 (1.0-2.1); ALBUMIN 3.7 g/dL (3.5-5.0); ALT/SGPT 108 U/L (21-72); AST/SGOT 33 U/L (17-59); BLOOD UREA NITROGEN 13 mg/dL (9-20); CALCIUM 8.3 mg/dl (8.6-10.4); GFR AFRICAN-AMERICAN > 60; GFR NON-AFRICAN AMERICAN > 60
--- NOTE | 2016-11-27 16:15 | CP.PCM.PN ---
Subjective - Date & Time of Evaluation Date of Evaluation: 11/27/16 Time of Evaluation: 16:12 - Subjective Subjective: 46 Y/O MALE SEEN AND EXAMINED TODAY, DENIES ANY PAIN, SOB, RESP EASY AND UNLABORED, NAD. Objective - Vital Signs/Intake and Output Vital Signs (last 24 hours): Temp Pulse Resp BP Pulse Ox 98.2 F 82 18 128/70 95 11/27/16 07:20 11/27/16 07:30 11/27/16 07:20 11/27/16 10:23 11/27/16 07:20 Intake and Output: 11/27/16 11/27/16 06:59 18:59 Intake Total 290 Balance 290 - Medications Medications: Current Medications Carvedilol (Coreg) 6.25 mg PO BID [facility] Last Admin: 11/27/16 10:22 Dose: 6.25 mg Clonidine HCl (Catapres) 0.2 mg PO TID [facility] Last Admin: 11/27/16 15:00 Dose: 0.2 mg Enalapril Maleate (Vasotec) 20 mg PO BID [facility] Last Admin: 11/27/16 10:22 Dose: 20 mg Furosemide (Lasix) 40 mg PO DAILY [facility] Last Admin: 11/27/16 10:23 Dose: 40 mg Gabapentin (Neurontin) 300 mg PO TID [facility] Last Admin: 11/27/16 15:00 Dose: 300 mg Cefepime HCl (Maxipime Iv 1 Gm Premix) 1 gm in 50 mls @ 100 mls/hr IVPB Q8H [facility] Last Admin: 11/27/16 12:00 Dose: 100 mls/hr Insulin Glargine (Lantus) 25 unit SC [facility] Last Admin: 11/26/16 21:53 Dose: 25 units Insulin Glargine (Lantus) 30 unit SC HS [facility] Insulin Human Regular (Novolin R) 0 unit SC [facility] PRN Reason: Protocol Last Admin: 11/27/16 11:59 Dose: 8 unit Lactobacillus Acidophilus (Bacid Acidophilus) 1 cap PO BID [facility] Last Admin: 11/27/16 10:23 Dose: 1 cap Loperamide HCl (Imodium) 2 mg PO Q6H [facility] Last Admin: 11/27/16 10:21 Dose: 2 mg [facility] Metoprolol Succinate (Toprol Xl) 50 mg PO BID [facility] Last Admin: 11/27/16 10:19 Dose: 50 mg Potassium Chloride (K-Dur 20 Meq Er Tab) 20 meq PO DAILY [facility] Last Admin: 11/27/16 10:20 Dose: 20 meq Sitagliptin Phosphate (Januvia) 50 mg PO DAILY [facility] Last Admin: 11/27/16 15:56 Dose: 50 mg Tramadol HCl (Ultram) 50 mg PO Q8H PRN PRN Reason: Pain Last Admin: 11/20/16 23:06 Dose: 50 mg - Labs Labs: 11/27/16 13:44 11/27/16 13:44 PT 12.5 SECONDS (9.7-12.2) H 11/20/16 08:06 INR 1.1 11/20/16 08:06 APTT 35 SECONDS (21-34) H 11/20/16 08:06 Assessment and Plan - Assessment and Plan (Free Text) Plan: +BLOOD CULTURE ON 11/20 - SALMONELLA GRP. C REPEAT BLOOD CULTURE NO GROWTH SO FAR DIARRHEA IMPROVING LANTUS, INSULIN SLIDING SCALE CEFEPIME 1 GM Q8H FOR [address] REDDING F/U W/DR HALE AND DR REDDING PT AGREE W/POC, VERBALIZE UNDERSTANDING
[2016-11-27 17:07] VITALS: PULSE 86; RESP 20; TEMP 98.6; O2SAT 99
[2016-11-27 17:59] VITALS: BP 137/78
[2016-11-27] MEDS ORDERED: (Lantus) Insulin Glargine, Recombinant SC SCH (22:00)
== END 2016-11-27 21:00 | DRG 871 ==
LOC: C.ER 06:55 → C.9E 15:24 → C.6T 17:12
PROVIDERS: ADMIT Internal Medicine Cardiovascular Disease; ATTEND Internal Medicine Cardiovascular Disease
DX: A02.1 Salmonella sepsis (principal); J69.0 Pneumonitis due to inhalation of food and vomit; E86.0 Dehydration; A09 Infectious gastroenteritis and colitis, unspecified; I11.9 Hypertensive heart disease without heart failure; K76.0 Fatty (change of) liver, not elsewhere classified; E11.9 Type 2 diabetes mellitus without complications; I25.5 Ischemic cardiomyopathy; E78.00 Pure hypercholesterolemia, unspecified; Z95.810 Presence of automatic (implantable) cardiac defibrillator; Z79.4 Long term (current) use of insulin

== ENCOUNTER 2018-04-11 07:31 | Emergency (ER) | payer MEDICARE ==
[2018-04-11 07:31] VITALS: BMI 29.9
[2018-04-11] MEDS ORDERED: Sodium Chloride 0.9% 500 ML IV ONE ×2 (08:00→08:17)
[2018-04-11 08:20] LABS: BASO # 0.1 K/uL (0.0-0.2); BASO % 0.9 % (0.0-2.0); EOS # 1.3 K/uL (0.0-0.7); EOS % 9.6 % (0.0-4.0); HEMOGLOBIN 15.4 g/dL (12.0-18.0); LYMPH # 1.9 K/uL (1.0-4.3); LYMPH % 13.6 % (20.0-40.0); MEAN CELL VOLUME 85.6 fL (80.0-94.0); MEAN CORPUSCULAR HEMOGLOBIN 29.6 pg (27.0-31.0); MEAN CORPUSCULAR HGB CONC 34.6 g/dL (33.0-37.0); MEAN PLATELET VOLUME 10.9 fL (7.2-11.7); MONO # 0.9 K/uL (0.0-0.8); MONO % 6.2 % (0.0-10.0); NEUT # 9.7 K/uL (1.8-7.0); NEUT % 69.7 % (50.0-75.0); NRBC % 0.1 % (0.0-2.0); RBC 5.19 Mil/uL (4.40-5.90); RED CELL DISTRIBUTION WIDTH 13.7 % (11.5-14.5); WHITE BLOOD COUNT 13.9 K/uL (4.8-10.8)
--- NOTE | 2018-04-11 08:33 | C.PDOC ---
History Of Present Illness 48 y/o male presents to ED with c/o abdominal "cramping" pain associated with watery diarrhea for 3 days. Patient denies recent travel, sick contacts, fever, chills, blood in stool, vomiting, nausea, back pain, dysuria or any other c omplaints at this time. Time Seen by Provider: 04/11/18 07:38 Chief Complaint (Nursing): Abdominal Pain History Per: Patient History/Exam Limitations: no limitations Onset/Duration Of Symptoms: Days Current Symptoms Are (Timing): Still Present Location Of Pain/Discomfort: Epigastric Quality Of Discomfort: Cramping Past Medical History Reviewed: Historical Data, Nursing Documentation, Vital Signs Vital Signs: Last Vital Signs Temp 98.5 F 04/11/18 07:35 Pulse 92 H 04/11/18 08:05 Resp 17 04/11/18 08:05 BP 128/90 04/11/18 08:05 Pulse Ox 95 04/11/18 08:05 - Medical History PMH: Cardia Arrhythmia, HTN, Hypercholesterolemia Surgical History: Pacemaker - [facility] Procedures CORONAR ARTERIOGR-2 CATH (11/24/13) DRAINAGE OF ABDOMEN SKIN, EXTERNAL APPROACH (11/26/15) DRAINAGE OF PELVIC SUBCU/FASCIA, PERC APPROACH (10/24/15) LT HEART ANGIOCARDIOGRAM (11/24/13) RT/LEFT HEART CARD CATH (11/24/13) Family History: States: No Known Family Hx - Social History Hx Tobacco Use: No Hx Alcohol Use: No Hx Substance Use: No - Immunization History Hx Tetanus Toxoid Vaccination: No Hx Influenza Vaccination: Yes Hx Pneumococcal Vaccination: No Review Of Systems Constitutional: Negative for: Fever, Chills Gastrointestinal: Positive for: Abdominal Pain, Diarrhea. Negative for: Nausea, Vomiting, Constipation, Hematochezia Genitourinary: Negative for: Dysuria Musculoskeletal: Negative for: Back Pain Physical Exam - Physical Exam Appears: Non-toxic, No Acute Distress Skin: Warm, Dry, No Rash Head: Atraumatic, Normacephalic Eye(s): bilateral: Normal Inspection Oral Mucosa: Moist Neck: Normal ROM, Supple Cardiovascular: Rhythm Regular Respiratory: Normal Breath Sounds, No Rales, No Rhonchi, No Wheezing Gastrointestinal/Abdominal: Soft, Tenderness (Mild Epigastric), No Guarding, No Rebound, Other (Obese abdomen) Back: No CVA Tenderness Extremity: Normal ROM, Capillary Refill (<2 seconds) Neurological/Psych: Oriented x3, Normal Speech, Normal Cognition ED Course And Treatment - Laboratory Results Result Diagrams: 04/11/18 08:11 04/11/18 08:11 O2 Sat by Pulse Oximetry: 95 (RA) Pulse Ox Interpretation: Normal Progress Note: Blood work ordered. IV fluids administered. Disposition Counseled Patient/Family Regarding: Studies Performed, Diagnosis, Need For Followup, Rx Given - Disposition Referrals: Henrik Allen MD [Staff Provider] - Disposition: HOME/ ROUTINE Disposition Time: 09:30 Condition: STABLE Additional Instructions: FOLLOW UP WITH YOUR DOCTOR IN 1-2 DAYS DRINK PLENTY OF CLEAR FLUIDS USE MEDICATION FOR ABDOMINAL CRAMPING NEEDED RETURN TO EMERGENCY ROOM IF YOUR SYMPTOMS BECOME WORSE SEGUIR CON CHAKRABORTY MDICO EN 1-2 HOBBS BEBER MUCHOS FLUIDOS BETO UTILICE MEDICAMENTOS PARA EL CAMBIO ABDOMINAL SEGN SE NECESITA VUELVA A LA ALEX DE EMERGENCIA SI MOE SNTOMAS SE HACEN PEOR Prescriptions: Dicyclomine [Bentyl] 20 mg PO Q6 PRN #15 tab PRN Reason: ABDOMINAL CRAMPING Instructions: Diarrhea and Traveler's Diarrhea, Adult (DC) Forms: [employer] (Bulgarian) Print Language: BRUNEIAN - Clinical Impression Clinical Impression: Abdominal pain, Diarrhea - Scribe Statement The provider has reviewed the documentation as recorded by the Scribjass Leon All medical record entries made by the Scribe were at my direction and personally dictated by me. I have reviewed the chart and agree that the record accurately reflects my personal performance of the history, physical exam, medical decision making, and the department course for this patient. I have also personally directed, reviewed, and agree with the discharge instructions and disposition.
[2018-04-11 08:39] LABS: ALB/GLOB RATIO 1.4 (1.0-2.1); ALBUMIN 4.3 g/dL (3.5-5.0); ALT/SGPT 40 U/L (21-72); AST/SGOT 30 U/L (17-59); BLOOD UREA NITROGEN 10 mg/dL (9-20); CALCIUM 8.1 mg/dl (8.6-10.4); GFR NON-AFRICAN AMERICAN > 60; LIPASE 16 U/L (23-300)
[2018-04-11 10:03] VITALS: BP 138/94; PULSE 95; RESP 18; TEMP 98.9; O2SAT 97
== END 2018-04-11 10:05 | disposition home or self-care (01) ==
LOC: C.ER 07:31
DX: R10.13 Epigastric pain (principal); R19.7 Diarrhea, unspecified
CPT/HCPCS: 80053; 82948; 83690; 85025; 99285; J7040